=== PATIENT | female | born 1950 | race Caucasian/White ===

== ENCOUNTER 2016-06-18 09:36 | Emergency (ER) | payer OTHER ==
[~2016-06-18] VITALS: Ht 157.5 cm; Wt 90.7 kg
[~2016-06-18 09:36] MED LIST: CALCIUM 600600 M1 PO; DIOVAN HCT 3201 EACH PO; LEVOTHYROXINE75 MCG PO
--- NOTE | 2016-06-18 10:14 | ED SYNCOPE COMPLAINT ---
History of Present Illness General Chief Complaint: General Adult Stated Complaint: WEAKNESS,FELT LIKE SHE WAS GOING TO PASS OUT Source: patient, old records Exam Limitations: no limitations Vital Signs & Intake/Output Vital Signs & Intake/Output ED Intake and Output 06/19 0000 06/18 1200 Intake Total 0 Output Total Balance 0 Intake, Oral 0 Patient 200 lb Weight Allergies Coded Allergies: NO KNOWN ALLERGIES (06/18/16) Reconcile Medications Levothyroxine Sodium 75 MCG TABLET 1 TAB PO DAILY AC THYROID (Reported) Rosuvastatin Calcium (Crestor) 20 MG TABLET 1 TAB PO QPM CHOLESTEROL ( Reported) Valsartan/Hydrochlorothiazide (Diovan Hct 320-25 MG Tablet) 320 MG-25 MG TABLET 1 TAB PO DAILY HEART (Reported) Triage Note: 66 Y/O FEMALE C/O FEELING "LIKE I WAS GOING TO PASS OUT"; SYMPTOMS ONSET THIS AM, 0700, WHILE IN SHOWER. STATES "I FELT WEAK AND TIRED AND I COULD HEAR MY B/P IN MY EARS" .. "IF I DIDNT SIT, I FELT LIKE I WAS GOING TO PASS OUT ..". AT PRESENT, PT C/O FEELING "WEAK AND TIRED AND JITTERY". DENIES C/P. DENIES SOB. FELT "HOT SWEATS" DURING EPISODE BUT DENIES FEELING SWEATY AT THIS TIME. EKG COMPLETE AND SIGNED BY MD TAKEN TO ROOM FOR EVAL Triage Nurses Notes Reviewed? yes Timing: single episode today Precipitating Factors: lightheadedness Associated Symptoms: denies HPI: 66 Year old female history of ocular headaches hypertension high cholesterol presents emergency room after she suddenly became weak in her legs, felt warm and felt as though she was going to pass out while the shower around 7:00 this morning. Patient states that she felt overly tired when she woke up this morning however denied any chest pain shortness of breath palpitations dizziness. There's been no recent fall or head trauma she denies headache vision changes nausea vomiting or arm pain or jaw pain. The patient states that she had a history of vasovagal syncope several years ago. She states she did eat a small breakfast prior to the episode occurring this morning. On arrival the patient denies any symptoms states she is feeling improved. (AMBERLY AGRAWAL,FELIX) Past History Travel History Traveled to [place] past 21 day No Medical History Any Pertinent Medical History? see below for history Neurological: ocular headache EENT: NONE Cardiovascular: hypertension, HIGH CHOLESTEROL Respiratory: NONE Gastrointestinal: NONE Hepatic: NONE Renal: NONE Musculoskeletal: NONE Psychiatric: NONE Endocrine: hypothyroidism Blood Disorders: NONE Cancer(s): NONE METAL DRESSER/Reproductive: NONE Surgical History Surgical History: gastric lap band Psychosocial History What is your primary language Martiniquais Tobacco Use: Never used Family History Hx Contributory? No (FELIX CHAIDEZ) Review of Systems Review of Systems Constitutional: Reports: see HPI. All Other Systems: Reviewed and Negative Comments Review of systems: See HPI, All other systems negative. Constitutional, no chills no fever, no malaise HEENT: No visual changes no sore throat no congestion, Cardiovascular: No chest pain , no palpitation , no orthopnea no ankle swelling Skin, no rashes, no change in skin Respiratory: No dyspnea no cough no sputum no hemoptysis GI: No nausea no vomiting, no diarrhea, : No dysuria No hematuria, no frequency, Muscle skeletal: No joint pain, no joint swelling, no back pain, no neck pain, Neurologic: No numbness no headache Psych: No stress no anxiety no depression,. Heme/endocrine: No bruising no bleeding no polyuria no polydipsia Immunology: No lymphadenopathy, (FELIX CHAIDEZ) Physical Exam Physical Exam General Appearance: well developed/nourished, no apparent distress, alert Cranial Nerves: normal hearing, normal speech, PERRL Comments: Well-developed well-nourished person in no acute distress HEENT: Normal EENT exam; PERRL, EOMI, no nystagmus. HEAD is atraumatic. moist mucous membranes. Neck: Supple, no lymphadenopathy, normal range of motion no bruit Back: Nontender, no CVA tenderness. Full range of motion Cardiovascular: Regular rate and rhythms no murmurs rubs or gallops Respiratory: No respiratory distress. Patient speaking in full complete sentences. Breath sounds clear to auscultation bilaterally: NO W/R/R Abdomen: Soft, nontender nondistended, no appreciable organomegaly. Normal bowel sounds. No rebound/guarding, Extremity: No edema, full range of motion of extremities Neuro: Alert oriented x3, motor sensory normal. There were no obvious focal neurologic abnormalities. Skin: No appreciable rash on exposed skin, skin is warm and dry. Psych: Mood and affect is normal, memory and judgment is normal. Core Measures ACS in differential dx? Yes CVA/TIA Diagnosis: No Severe Sepsis Present: No Septic Shock Present: No (AMBERLY AGRAWAL,FELIX) Progress Differential Diagnosis: AMI, aortic valve, hyperventilation, orthostatic syncope , other valvular disease, uti, vasovagal electrolyte abnormality, hamzah Plan of Care: Orders Procedure Date/time Status Regular Diet 06/18 D Active TROPONIN LEVEL 06/18 1415 Complete EKG 06/18 1415 Active URINALYSIS 06/18 1119 Complete MISTAKE 06/18 1016 Active Telemetry/Bus Operator 06/18 1016 Active TROPONIN LEVEL 06/18 1016 Complete COMPREHENSIVE METABOLIC PANEL 06/18 1016 Complete CBC WITHOUT DIFFERENTIAL 06/18 1016 Complete EKG 06/18 0940 Active Laboratory Tests 06/18/16 1413: Troponin I 0.04 06/18/16 1127: Urinalysis LIGHT H, Urine Color YEL, Urine Clarity CLEAR, Urine pH 6.5, Ur Specific [place] 1.015, Urine Protein NEG, Urine Ketones NEG, Urine Nitrite NEG, Urine Bilirubin NEG, Urine Urobilinogen 0.2, Ur Leukocyte Esterase NEG, Ur Microscopic SEDIMENT EXAMINED, Urine RBC RARE, Urine WBC RARE, Ur Epithelial Cells RARE, Urine Bacteria RARE H, Urine Mucus FEW, Urine Hemoglobin SMALL H, Urine Glucose NEG 06/18/16 1021: Anion Gap 11, Estimated GFR > 60, BUN/Creatinine Ratio 22.5, Glucose 79, Calcium 9.6, Total Bilirubin 0.9, AST 36, ALT 36, Alkaline Phosphatase 70, Troponin I 0.03, Total Protein 7.1, Albumin 3.9, Globulin 3.2, Albumin/Globulin Ratio 1.2, CBC w Diff NO MAN DIFF REQ, RBC 4.64, MCV 89.3, MCH 29.7, RDW 13.1, MPV 8.1, Gran % 85.5 H, Lymphocytes % 7.1 L, Monocytes % 6.6, Eosinophils % 0.6, Basophils % 0.2, Absolute Granulocytes 12.7 H, Absolute Lymphocytes 1.0 L, Absolute Monocytes 1.0 H, Absolute Eosinophils 0.1, Absolute Basophils 0, PUBS MCHC 33.3 Labs ordered IV fluids ordered orthostatics negative case discussed with Dr. sherwood Discussed with patient all of her lab results to date again resting a synthetic in no apparent distress discussed with patient plan of care and need for repeat troponin On repeat evaluation patient again is resting comfortably she is ambulatory here around ER with steady gait denies dizziness lightheadedness or presyncopal symptoms. I discussed with her repeat troponin information was provided for follow-up with cardiology as well as her primary care this week advised return anytime sooner with any concerns the patient feels comfortable with plan and discharge at this time (FELIX CHAIDEZ) Departure Departure Time of Disposition: 1506 Disposition: HOME OR SELF CARE Condition: Stable Clinical Impression Primary Impression: Weakness Referrals: HO MEJIA MD (PCP/Family) Sheila MARISCAL MD Additional Instructions: Follow-up with your primary care physician as well as steam gigger Dr. Mariscal this week. Ensure you are drinking and eating well balanced meals throughout the day. Return to emergency room anytime sooner with any concerns. Departure Forms: Customer Survey General Discharge Information (FELIX CHAIDEZ) PA/DIABETES TERRITORY MANAGER Co-Sign Statement Statement: ED Attending supervision documentation- X I saw and evaluated the patient. I have also reviewed all the pertinent lab results and diagnostic results. I agree with the findings and the plan of care as documented in the PA's/DIABETES TERRITORY MANAGER's documentation. [] I have reviewed the ED Record and agree with the PA's/DIABETES TERRITORY MANAGER's documentation. [] Additions or exceptions (if any) to the PAs/DIABETES TERRITORY MANAGER's note and plan are summarized below: [] (LIBIA COATES,MATILDA)
[2016-06-18 10:35] LABS: ABSOLUTE BASOPHIL COUNT 0 /CUMM (0.0-0.2); ABSOLUTE EOSINOPHIL COUNT 0.1 /CUMM (0.0-0.7); ABSOLUTE GRANULOCYTE CT 12.7 /CUMM (1.4-6.5); BASOPHIL % 0.2 % (0.0-2.0); EOSINOPHIL % 0.6 % (0-5); HEMATOCRIT 41.5 % (37-47); MEAN CORPUSCULAR HGB 29.7 PG (27.0-31.0); MEAN CORPUSCULAR HGB CONC 33.3 G/DL (33.0-37.0); MEAN CORPUSCULAR VOLUME 89.3 FL (81.0-99.0); MEAN PLATELET VOLUME 8.1 FL (7.4-10.4); PLATELET COUNT 195 /CUMM (130-400); RBC DISTRIBUTION WIDTH 13.1 % (11.5-14.5); RED BLOOD CELL CT 4.64 /CUMM (4.20-5.40); WHITE BLOOD CELL COUNT 14.9 /CUMM (4.8-10.8)
[2016-06-18 10:55] LABS: GRANULOCYTE % 85.5 % (42.2-75.2)
[2016-06-18] MEDS ORDERED: CRESTOR20 M2 PO (10:55)
[2016-06-18 14:31] VITALS: BP 112/65
== END 2016-06-18 15:21 ==
LOC: ERH 09:36
PROVIDERS: Physician Assistant Medical
DX: R53.1 Weakness (principal); I10 Essential (primary) hypertension; E03.9 Hypothyroidism, unspecified
CPT/HCPCS: 81001; 93005; 93010; 96360

== ENCOUNTER 2016-07-20 17:26 | Observation (INO) | payer OTHER ==
[~2016-07-20] VITALS: Ht 157.5 cm; Wt 90.7 kg
[~2016-07-20 17:26] MED LIST changes: +CRESTOR20 M2 PO
--- NOTE | 2016-07-20 17:45 | ED GENERAL ADULT ---
History of Present Illness General Chief Complaint: General Adult Stated Complaint: PER PT LEGS ARE WEAK, TINGLING IN MOUTH Source: patient, old records Exam Limitations: no limitations Vital Signs & Intake/Output Vital Signs & Intake/Output Vital Signs Date Time Temp Pulse Resp B/P Pulse O2 O2 Flow FiO2 Ox Delivery Rate 07/20 2208 98.5 59 16 164/91 95 Room Air 07/20 1851 Room Air 07/20 1841 99.1 58 16 174/80 95 Room Air 07/20 1730 99.1 69 16 151/95 98 Room Air Allergies Coded Allergies: NO KNOWN ALLERGIES (06/18/16) Reconcile Medications Levothyroxine Sodium 75 MCG TABLET 1 TAB PO DAILY AC THYROID (Reported) Rosuvastatin Calcium (Crestor) 20 MG TABLET 1 TAB PO QPM CHOLESTEROL ( Reported) Valsartan 320 MG TABLET 1 TAB PO DAILY BP (Reported) Triage Note: PT STATES SHE FEELS WEAK AND HER LEGS FEEL LIKE ARE GOING TO GIVE OUT ON HER. PT STATES SOMETIMES THIS HAPPENS WITH THE HEAT BUT TODAY SHE CAN'T FIGURE OUT WHY THIS IS HAPPENING TO HER TODAY. Triage Nurses Notes Reviewed? yes HPI: Patient is a 66-year-old female presents complaining of leg weakness and near syncopal episodes. Patient had one episode on Thursday while she was at work during his stressful situation. Patient has had 3-4 episodes today while walking, legs felt severe weakness, right greater than left. Patient reports that while walking she feels extreme weakness in her legs and feeling like she is going to pass out. Patient sits down and symptoms started to resolve. Patient also had one episode where she was on her computer and her right upper extremity overshot a mouse and she felt like she had less control of her right upper extremity. Currently patient is feeling mild generalized weakness. Pain is 0 out of 10. Patient denies headache, blurred vision, numbness, chest pain, recent trauma. (ANDERS AGRAWAL,GIOVANNY) Past History Travel History Traveled to [place] past 21 day No Medical History Any Pertinent Medical History? see below for history Neurological: ocular headache EENT: NONE Cardiovascular: hypertension, HIGH CHOLESTEROL Respiratory: NONE Gastrointestinal: NONE Hepatic: NONE Renal: NONE Musculoskeletal: NONE Psychiatric: NONE Endocrine: hypothyroidism Blood Disorders: NONE Cancer(s): NONE VALUATION MANAGER/Reproductive: NONE Surgical History Surgical History: gastric lap band Psychosocial History What is your primary language Maori Tobacco Use: Never used ETOH Use: denies use Illicit Drug Use: denies illicit drug use Family History Hx Contributory? No (GIOVANNY MENDEZ) Review of Systems Review of Systems Constitutional: Reports: weakness. Denies: chills, fever. EENTM: Denies: blurred vision, visual changes, ear pain. Respiratory: Denies: cough, short of breath. Cardiovascular: Reports: peripheral edema. Denies: chest pain, palpitations. GI: Denies: abdominal pain, nausea, vomiting. Genitourinary: Reports: no symptoms. Musculoskeletal: Denies: back pain, neck pain. Skin: Denies: rash. Neurological/Psychological: Reports: see HPI. Hematologic/Endocrine: Reports: no symptoms. Immunologic/Allergic: Reports: no symptoms. (GIOVANNY MENDEZ) Physical Exam Physical Exam General Appearance: well developed/nourished, alert, awake Head: atraumatic, normal appearance Eyes: Bilateral: normal appearance, PERRL, EOMI. Ears, Nose, Throat: normal pharynx, normal ENT inspection, hearing grossly normal Neck: normal inspection, supple, full range of motion, no appreciable carotid bruit Respiratory: normal breath sounds, chest non-tender, no respiratory distress, lungs clear Cardiovascular: regular rate/rhythm (no appreciable murmur) Gastrointestinal: soft, non-tender Back: normal inspection, normal range of motion Extremities: normal inspection, normal capillary refill, normal range of motion, no edema Neurologic/Psych: no motor/sensory deficits, awake, alert, oriented x 3, normal gait, normal mood/affect, analytical strategist II-XII nml as tested, normal point to point movements of upper extremities Skin: intact, normal color, warm/dry Lymphatic: no anterior cervical krupa Core Measures ACS in differential dx? Yes ASA ordered for poss ACS? No-ACS ruled out CVA/TIA Diagnosis: Yes NIH Stroke Scale: Total 0 Dt/Tm Last Known Well: Yes Date Last Known Well: 07/20/16 Neurological S/S of CVA: Muscle Weakness, Weakness of Limb Symptom start date: 07/20/16 Reason tPA not ordered: Medical Contraindication Comment: symptoms resolved, tPA not indicated Severe Sepsis Present: No Septic Shock Present: No Bedside Swallow Eval Done: Yes Result of Evaluation: Pass (GIOVANNY MENDEZ) Progress Differential Diagnoses I considered the following diagnoses in my evaluation of the patient: Plan of Care: Orders Procedure Date/time Status Heart Healthy Diet 07/21 B Active CBC WITHOUT DIFFERENTIAL 07/21 06 Active BASIC ELECTROLYTES PLUS BUN&CR 07/21 06 Active TROPONIN LEVEL 07/21 0000 Active EKG 07/21 0000 Active PT Evaluate & Treat 07/20 2153 Active Saline Lock 07/20 2153 Active Pathway - chart 07/20 2153 Active House Staff 07/20 2153 Active Code Status 07/20 2153 Active Saline Lock 07/20 2126 Active Misc Message 07/20 2126 Active ED Holding Orders 07/20 2126 Active Code Status 07/20 2126 Complete Patient Data 07/[address] in observation 07/20 2050 Active MISTAKE 07/20 180 Active THYROID STIMULATING HORMONE 07/20 180 Complete TROPONIN LEVEL 07/20 180 Complete COMPREHENSIVE METABOLIC PANEL 07/20 180 Complete CBC WITHOUT DIFFERENTIAL 07/20 180 Complete EKG 07/20 1730 Active VTE Mechanical Prophylaxis 07/20 UNK Active Vital Signs 07/20 UNK Active Intake & Output 07/20 UNK Active Current Medications Sig/Christophe Start time Last Medication Dose Stop Time Status Admin Atorvastatin Calcium 80 MG 1700 07/21 1700 AC (Lipitor) Levothyroxine Sodium 0.075 MG DAILY AC 07/21 0700 AC (Synthroid) Acetaminophen 500 MG Q6P PRN 07/20 2129 AC (Tylenol) Acetaminophen/ 1 TAB Q8P PRN 07/20 2129 AC Hydrocodone Bitart (Vicodin) Oxycodone/ 1 TAB Q6P PRN 07/20 2129 AC Acetaminophen (Percocet) Laboratory Tests 07/20/16 1848: Anion Gap 13, Estimated GFR > 60, BUN/Creatinine Ratio 15.0, Glucose 89, Calcium 9.6, Total Bilirubin 1.0, AST 23, ALT 32, Alkaline Phosphatase 65, Troponin I < 0.01, Total Protein 7.5, Albumin 4.3, Globulin 3.2, Albumin/Globulin Ratio 1.3, TSH 2.860, CBC w Diff NO MAN DIFF REQ, RBC 4.57, MCV 89.8, MCH 29.9, RDW 13.5, MPV 8.2, Gran % 64.1, Lymphocytes % 24.7, Monocytes % 7.5, Eosinophils % 3.2, Basophils % 0.5, Absolute Granulocytes 4.0, Absolute Lymphocytes 1.5, Absolute Monocytes 0.5, Absolute Eosinophils 0.2, Absolute Basophils 0, PUBS MCHC 33.3 1909: Patient re-evaluated. Erythema and warmth developing to the right side of the face, right side of neck and left side of neck that wasnt present on initial presentation. No urticaria, dyspnea or signs of allergice reaction. Patient denies any new skin contacts, foods. 2029: Discussed with and seen by Dr. Wilburn. Benadryl administered for patient's facial redness. Mild improvement of redness. Results of labs and CT scan discussed with patient and her son. 2049: Dr. Wilburn discussed patient with Dr. Christianson for telemetry observation (ANDERS AGRAWAL,GIOVANNY) Diagnostic Imaging: Viewed by Me: CT Scan. Discussed w/RAD: CT Scan. Radiology Impression: PATIENT: RHODA INMAN PRESENT AGE: 66 PATIENT ACCOUNT NO: [id number] : 52 LOCATION: [facility] ORDERING PHYSICIAN: GIOVANNY AGRAWAL SERVICE DATE: 07/20/16 EXAM TYPE: CAT - CT HEAD WO IV CONTRAST EXAMINATION: CT HEAD WITHOUT CONTRAST CLINICAL INFORMATION: Rule out stroke, symptoms involving the right upper extremity transiently. Syncope. COMPARISON: MRI head 08/21/2014, CT head 2014 TECHNIQUE: Contiguous axial imaging was performed from the skull base to vertex without intravenous administration of contrast. DLP: 529.2 mGy-cm FINDINGS: There is no evidence of acute intracranial hemorrhage or large territorial infarction. No abnormal mass effect or midline shift is seen. Ortiz to white matter differentiation is well preserved. No extra-axial fluid collections are identified. The ventricles are normal in size. There is no abnormal attenuation within the brain parenchyma. The osseous structures and soft tissues are normal. The mastoid air cells and visualized portions of the paranasal sinuses are well aerated. Prominence of the tip of the basilar artery is redemonstrated and overall less conspicuous compared to the [address] CT. IMPRESSION: No acute intracranial findings. DICTATED BY: ELBA WASHINGTON MD DATE/ TIME DICTATED:07/20/161832 RECORD CHANGER TESTER:BROOKE DATE/TIME TRANSCRIBED: 07/20/161832 CONFIDENTIAL, DO NOT COPY WITHOUT APPROPRIATE AUTHORIZATION. < Electronically signed in Other Vendor System> SIGNED BY: ELBA WASHINGTON MD 1840 Initial ED EKG: NORMAL SINUS RHYTHM 64 BPM LEFT AXIS DEVIATION, NO ACUTE st/t- WAVE ABNORMALITIES. Prior EKG: unchanged Rhythm Strip: normal sinus rhythm (GIOVANNY MENDEZ) Departure Departure Disposition: STILL A PATIENT Condition: Stable Clinical Impression Primary Impression: Near syncope Secondary Impressions: TIA (transient ischemic attack) Qualifiers: Transient cerebral ischemia type: unspecified Qualified Code: G45.9 - Transient cerebral ischemic attack, unspecified Referrals: HO MEJIA MD (PCP/Family) Departure Forms: Customer Survey General Discharge Information Observation Note [facility] Patient In: Non-ED OBS Care Area Rationale for Observation: My rational for observation is as follows: telemetry monitoring, serial neurologic exams, serial ekg, serial troponins, neurology consultation, cardiology consultation (GIOVANNY MENDEZ) PA/MILLROOM SUPERVISOR Co-Sign Statement Statement: ED Attending supervision documentation- [X] I saw and evaluated the patient. I have also reviewed all the pertinent lab results and diagnostic results. I agree with the findings and the plan of care as documented in the PA's/MILLROOM SUPERVISOR's documentation. PT SIGNED OUT TO ME... DISCUSSED WITH DR. CHRISTIANSON [] I have reviewed the ED Record and agree with the PA's/MILLROOM SUPERVISOR's documentation. [] Additions or exceptions (if any) to the PAs/MILLROOM SUPERVISOR's note and plan are summarized below: [] (MAURILIO COATES,KARY Muñoz) Critical Care Note Critical Care Note Critical Care Time: non-applicable (GIOVANNY MENDEZ)
[2016-07-20] MEDS ORDERED: VALSARTAN320 M1 PO (18:40)
--- NOTE | 2016-07-20 18:40 | CT SCAN REPORT ---
EXAMINATION: CT HEAD WITHOUT CONTRAST CLINICAL INFORMATION: Rule out stroke, symptoms involving the right upper extremity transiently. Syncope. COMPARISON: MRI head 08/21/2014, CT head 08/04/2014 TECHNIQUE: Contiguous axial imaging was performed from the skull base to vertex without intravenous administration of contrast. DLP: 529.2 mGy-cm FINDINGS: There is no evidence of acute intracranial hemorrhage or large territorial infarction. No abnormal mass effect or midline shift is seen. Ortiz to white matter differentiation is well preserved. No extra-axial fluid collections are identified. The ventricles are normal in size. There is no abnormal attenuation within the brain parenchyma. The osseous structures and soft tissues are normal. The mastoid air cells and visualized portions of the paranasal sinuses are well aerated. Prominence of the tip of the basilar artery is redemonstrated and overall less conspicuous compared to the 2015 CT. IMPRESSION: No acute intracranial findings.
[2016-07-20 19:16] LABS: ABSOLUTE BASOPHIL COUNT 0 /CUMM (0.0-0.2); ABSOLUTE EOSINOPHIL COUNT 0.2 /CUMM (0.0-0.7); ABSOLUTE LYMPH COUNT 1.5 /CUMM (1.2-3.4); ABSOLUTE MONOCYTE COUNT 0.5 /CUMM (0.10-0.60); BASOPHIL % 0.5 % (0.0-2.0); EOSINOPHIL % 3.2 % (0-5); GRANULOCYTE % 64.1 % (42.2-75.2); MEAN CORPUSCULAR HGB 29.9 PG (27.0-31.0); MEAN CORPUSCULAR HGB CONC 33.3 G/DL (33.0-37.0); MEAN CORPUSCULAR VOLUME 89.8 FL (81.0-99.0); MEAN PLATELET VOLUME 8.2 FL (7.4-10.4); PLATELET COUNT 217 /CUMM (130-400); RBC DISTRIBUTION WIDTH 13.5 % (11.5-14.5); RED BLOOD CELL CT 4.57 /CUMM (4.20-5.40); WHITE BLOOD CELL COUNT 6.3 /CUMM (4.8-10.8)
--- NOTE | 2016-07-20 22:48 | History & Physical ---
DEBBIE COATES,[facility] 07/20/16 2248: General Information and HPI MD Statement: I have seen and personally examined RHODA INMAN and documented this H&P. The patient is a 66 year old F who presented with a patient stated chief complaint of [weakness in the legs]. Source of Information: patient Exam Limitations: no limitations History of Present Illness: Patient is a 66 year old lady with PMH of HTN, HLD, ocular migraine, who is brought to the ED by her son after feeling weak and almost passing out earlier today. patient reports that since about a month ago she is feeling weak in both legs (Right more than the Left) when walking and her gait has been wobbly. she denies any loss of balance and fall. The weakness does not change during the day and is not present in the arms. denies any changes in the speech, denies numbness, denies facial droop, reports tingling on the upper lip that happened a few times during the day today and made her more fearful and upset, reports lightheadedness, but no vertigo or nausea. Reports ringing in the ears that has happened 4 times today lasting 30 seconds each. Denies any headache. Patient reports she had visual changes consistent with migraine headache last time she came to the ED for the similar reason (weakness in the legs, about a month ago). At that time her symptoms were associated with vasovagal as it worsened with hot showers. This time she denies noticing such a correlation. Patient was supposed to follow up with Dr. Ch after discharge last time but could not make an appointment. Patient has total knee replacement done 15 years ago on the left side and partial knee replacement 13 years ago on the right side, she is scheduled for a total knee sx on the right on the 2016. Patient reports a fall a few months ago after which she has been having pain on the right knee, she had to use a cane when walking for about 3 weeks. Overall she admits that she feels the right leg is giving away when walking. Patient currently denies chest pain, palpitation, SOB, fever, chills, sick contacts, visual changes, headache. While she was in the ED, she had an episode of redness of the face and upper shoulder for which she was given benadryl resulting in improvement of symptoms. Allergies/Medications Allergies: Coded Allergies: NO KNOWN ALLERGIES (06/18/16) Home Med list Levothyroxine Sodium 75 MCG TABLET 1 TAB PO DAILY AC THYROID (Reported) Rosuvastatin Calcium (Crestor) 20 MG TABLET 1 TAB PO QPM CHOLESTEROL ( Reported) Valsartan 320 MG TABLET 1 TAB PO DAILY BP (Reported) Past History Travel History Traveled to [place] past 21 day No Medical History Neurological: ocular headache EENT: NONE Cardiovascular: hypertension, HIGH CHOLESTEROL Respiratory: NONE Gastrointestinal: NONE Hepatic: NONE Renal: NONE Musculoskeletal: NONE Psychiatric: NONE Endocrine: hypothyroidism Blood Disorders: NONE Cancer(s): NONE 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 Denies: chills, diaphoresis, fever, malaise. EENTM: Reports: see HPI. Cardiovascular: Denies: chest pain, palpitations, peripheral edema, syncope. Respiratory: Denies: cough, short of breath, sputum production. GI: Reports: no symptoms. Genitourinary: Reports: no symptoms. Musculoskeletal: Reports: joint pain (knees R>L). Skin: Reports: no symptoms. Neurological/Psychological: Reports: tingling (of the upper lip, intermittent), weakness (on the legs). Denies: headache (reports migraine in the past). Hematologic/Endocrine: Reports: no symptoms. Immunologic/Allergic: Reports: no symptoms. Exam & Diagnostic Data Last 24 Hrs of Vital Signs/I&O Vital Signs Date Time Temp Pulse Resp B/P Pulse O2 O2 Flow FiO2 Ox Delivery Rate 07/21 0024 97.5 73 16 138/63 98 07/20 2209 98.5 59 16 164/91 95 Room Air 07/20 1851 Room Air 07/20 1841 99.1 58 16 174/80 95 Room Air 07/20 1730 99.1 69 16 151/95 98 Room Air Intake & Output 07/21 0800 07/21 0000 07/20 1600 Intake Total Output Total Balance Patient 90.718 kg 90.718 kg Weight Physical Exam General Appearance Alert, Oriented X3, Cooperative, No Acute Distress Skin No Rashes, No Breakdown, No Significant Lesion HEENT Atraumatic, EOMI, Mucous Membr. moist/pink, pupils round and reactive to light Neck Supple, No JVD Cardiovascular Regular Rate, Normal S1, Normal S2, No Murmurs Lungs Clear to Auscultation, Normal Air Movement Abdomen Soft, No Tenderness Neurological Normal Speech, Strength at 5/5 X4 Ext, Normal Tone, Sensation Intact, Cranial Nerves 3-12 NL, Reflexes 2+, unsteady gait, moving backwards when standing with eyes closed (Romberg's test positive) Extremities No Edema, Normal Pulses, No Tenderness/Swelling Vascular Pulses Symmetrical Last 24 Hrs of Labs/Rex: Laboratory Tests 07/21/16 0020: Troponin I < 0.01 07/20/16 1848: Anion Gap 13, Estimated GFR > 60, BUN/Creatinine Ratio 15.0, Glucose 89, Calcium 9.6, Total Bilirubin 1.0, AST 23, ALT 32, Alkaline Phosphatase 65, Troponin I < 0.01, Total Protein 7.5, Albumin 4.3, Globulin 3.2, Albumin/Globulin Ratio 1.3, TSH 2.860, CBC w Diff NO MAN DIFF REQ, RBC 4.57, MCV 89.8, MCH 29.9, RDW 13.5, MPV 8.2, Gran % 64.1, Lymphocytes % 24.7, Monocytes % 7.5, Eosinophils % 3.2, Basophils % 0.5, Absolute Granulocytes 4.0, Absolute Lymphocytes 1.5, Absolute Monocytes 0.5, Absolute Eosinophils 0.2, Absolute Basophils 0, PUBS MCHC 33.3 Diagnostic Data Other Results SERVICE DATE: 07/20/16 EXAM TYPE: CAT - CT HEAD WO IV CONTRAST EXAMINATION: CT HEAD WITHOUT CONTRAST CLINICAL INFORMATION: Rule out stroke, symptoms involving the right upper extremity transiently. Syncope. COMPARISON: MRI head 08/21/2014, CT head 08/04/2014 TECHNIQUE: Contiguous axial imaging was performed from the skull base to vertex without intravenous administration of contrast. DLP: 529.2 mGy-cm FINDINGS: There is no evidence of acute intracranial hemorrhage or large territorial infarction. No abnormal mass effect or midline shift is seen. Ortiz to white matter differentiation is well preserved. No extra-axial fluid collections are identified. The ventricles are normal in size. There is no abnormal attenuation within the brain parenchyma. The osseous structures and soft tissues are normal. The mastoid air cells and visualized portions of the paranasal sinuses are well aerated. Prominence of the tip of the basilar artery is redemonstrated and overall less conspicuous compared to the 2015 CT. IMPRESSION: No acute intracranial findings. DICTATED BY: ELBA WASHINGTON MD DATE/TIME DICTATED:07/20/161832 INFRASTRUCTURE TECHNICIAN:BROOKE DATE/TIME TRANSCRIBED:07/20/161832 Assessment/Plan Assessment: Patient is a 66 year old lady with PMH of HTN, HLD, ocular migraine, who is brought to the ED due to weakness on the legs and a near syncope episode. Examination has not revealed any neurologic findings. She is admitted for observation to rule out CVA, ACS and any arrhythmias. Problem list: Lower extremity weakness (right more than left) Subjective feeling of weakness and gait abnormality with full (5/5) forces in the exam and sensations intact, but with positive Romberg's's test. there is a possibility of a TIA. Head CT negative. Other possibilities: myopathies, knee injury from the fall and knee/gait instability. She has hx of knee arthroses and arthroplasty (total knee of the left side and scheduled for a total knee on the right on September 01, 2016) * Observation on telemetry to rule out CVA * Neurochecks every 2 hours * Neurology consult placed for am * Consider MRI of the brain * carotid doppler ultrasound * aspirin * high intensity statin * outpatient neurology follow up for further work up of the persistent lower extremity weakness * out patient orthopedics follow up * consider ESR, CRP, CPK Near syncope Etiologies include cardiac (arrhythmias, ACS), vasovagal, orthostatic hypotension. Patient reported her previous ED visit (with similar symptoms) were triggered by a hot shower and she was told the etiology of her weakness and lightheadedness was probably vasovagal. No palpitation, or chest pain, but reported lightheadedness this time. EKG unremarkable, Troponin negative * telemetry monitoring * repeat troponin and EKG * cardiology consult in am * echocardiogram * orthostats HTN, HLD, hypothyroidism * continue home medications (valsartan 320 daily, levothyroxine 75 mcg daily) - she is recently taken off of the HCTZ due to low blood pressures * lipitor 80 mg daily (increased dose from home regimen: rosuvastatin 20 mg daily - equivalent 40 mg) Pain tylenol, vicodin, percocet Diet Heart healthy DVT px sC lovenox FUll code As Ranked By This Provider Problem List: 1. Near syncope 2. TIA (transient ischemic attack) Qualifiers Transient cerebral ischemia type: unspecified Qualified Code: G45.9 - Transient cerebral ischemic attack, unspecified 3. Weakness Core Measures/Miscellaneous Acute Coronary Syndrome ACS Diagnosis: No Cerebrovascular Accident CVA/TIA Diagnosis: Yes Date Last Known Well: 07/20/16 Neurological S/S of CVA: Muscle Weakness, Weakness of Limb Symptom Start Date: 07/20/16 Reason tPA not ordered Medical Contraindication Bedside Swallow Eval Done: Yes Result of Evaluation: Pass Congestive Heart Failure CHF Diagnosis: No Venous Thromboembolism VTE Risk Factors: Acute medical illness, Age > 40 No [facility] VTE prophylaxis d/t: VTE low risk, No contraindications No VTE Pharm Prophylaxis d/t: No contraindications VTE Diagnosis: No VTE Type: NONE VTE Confirmed by (Test): NONE Severe Sepsis Severe Sepsis Present: No Septic Shock Septic Shock Present: No Miscellaneous Documentation Attending Case Discussed With: BUTCH CHRISTIANSON MD Primary Care Physician: HO MEJIA MD Patient sees [facility], Dr. Roberson Level of Patient Care: Telemetry STEPHANIE HARO 07/21/16 0226: Resident Review Statement Resident Statement: examined this patient, discussed with audit intern, agreed with audit intern, reviewed EMR data (avail), discussed with nursing, reviewed images, amended to note Other Findings: This is a 66 year old lady with past medical history of HTN, HLD, ocular migraine, presented to ED by her son after feeling weak and almost passing out earlier today. patient reports that since about a month ago she is feeling weak in both legs (Right more than the Left) when walking and her gait has been wobbly. Patient stated that on June she had the symptoms of as a vaso vagal attack when she was taking a shower when she presented to the emergency department she was discharged home at that time she was advised to see florist manager but she stated that she didn't. Today she reports some tingling on her upper lip that happened a few times during the day. Also she report some lightheadedness, ringing sensation in her ears that have been around 3-4 times for less than a minute. Patient stated that she she had total knee replacement done 15 years ago on the left side and she stool for her right knee on August 2016 and because of that she was cane when she walks for the past 3 weeks. Physical examination, imaging and lab as above. Assessment: -Right Leg weakness with near syncopy: The right leg weakness-most likely due to her knee, she complaining cough ringing sensation and feeling sensation of lightheaded, patient will need to be ruled out for TIA. But giving the patient history and comorbidity it is least likely to have a TIA. Plan: -Admit patient to telemetry floor -Vitals every shift, I and O's -Check orthostatics -1 set of troponin and EKG -Echocardiogram -Carotid Doppler -Cardiology consultation -Neurology consultation -Physical therapy consultation -Continue home medication. -Pain pathway -DVT prophylaxis subcutaneous Lovenox -Full code SAMMY COATES, [facility] 07/21/16 0519: Attending MD Review Statement Attending Statement Attending MD Statement: examined this patient, discuss w/resident/PA/INFANTRY OFFICER, agreed w/resident/PA/INFANTRY OFFICER Attending Assessment/Plan: 66 yo morbidly obese F with h/o HTN, hypothyroidism, ocular migraine, depression , osteoarthritis s/p left knee replacement, awaiting right knee replacement (August 2016), is here for evaluation of right leg weakness (rubbery feeling) and near syncopal episodes. Recurrent episodes of feeling lightheaded about to pass out , right leg giving away and this resolves by resting or sitting down. She denies upper extremity weakness, facial droop or speech deficits. No chest pain, dyspnea, nausea, diaphoresis or palpitations. She was seen in ER in June 2016 for pre-syncope (probably vasovagal) and was discharged to follow up with Cardio Dr. Ch but she was unable to make an appointment. VSS. Orthostats are negative. Nonfocal exam except for when she did Romberg's test she swayed backwards. Labs unremarkable. EKG: SR, no acute changes. Head CT neg. 1. Right leg weakness with near syncopal episodes, needs Tele observation to evaluate this further. TIA/ stroke is a possibility. Monitor for arrhythmias, recheck orthostats in AM, monitor neurochecks, rule out ACS, obtain echo, carotid doppler, Cardio and Neuro consult. Continue aspirin and high dose statin. Patient passed bedside swallow eval. PT consult in AM. Continue synthroid and valsartan. Please note, patient had a sudden onset of facial and upper chest redness of unclear etiology that resolved with Benadryl. DVT ppx Lovenox. Full code.
--- NOTE | 2016-07-21 07:24 | PN- Housestaff ---
DALILA COATES,[facility] 07/21/16 0724: Subjective Follow-up For: Presyncope Right knee weakness Tele-Events Since Last Visit: Sinus rhythm, sinus bradycardia 47-57bpm PVC's throughout the night. Subjective: I saw and examined the patient today morning she is doing better, comfortably sitting in the bed. able to walk to the rest room, denies any dizziness or shortness of breath, chest pain. Review of Systems Constitutional: Reports: see HPI. Comments: ROS negative except the above. Objective Last 24 Hrs of Vital Signs/I&O Vital Signs Date Time Temp Pulse Resp B/P Pulse O2 O2 Flow FiO2 Ox Delivery Rate 07/21 0448 97 Room Air 07/21 0410 97.2 53 18 134/74 98 07/21 0316 97.1 76 16 130/74 98 07/21 0024 97.5 73 16 138/63 98 07/20 2209 98.5 59 16 164/91 95 Room Air 07/20 1851 Room Air 07/20 1841 99.1 58 16 174/80 95 Room Air 07/20 1730 99.1 69 16 151/95 98 Room Air Intake & Output 07/21 0800 07/21 0000 07/20 1600 Intake Total 480 Output Total Balance 480 Intake, Oral 480 Patient 90.718 kg 90.718 kg Weight Physical Exam General Appearance: Alert, Oriented X3, Cooperative Skin: No Rashes, No Breakdown HEENT: Atraumatic, PERRLA, EOMI Neck: Supple Cardiovascular: Normal S1, Normal S2 Lungs: Clear to Auscultation, Normal Air Movement Abdomen: Normal Bowel Sounds, Soft, No Tenderness Neurological: Normal Speech, Normal Tone, Sensation Intact Extremities: No Clubbing, No Cyanosis Current Medications: Current Medications Sig/Christophe Start time Last Medication Dose Route Stop Time Status Admin Acetaminophen 500 MG Q6P PRN 07/20 2129 AC PO Acetaminophen/ 1 TAB Q8P PRN 07/20 2129 AC Hydrocodone Bitart PO Aspirin 0 .STK-MED ONE 07/21 2155 DC PO Aspirin 81 MG ONCE ONE 07/20 2100 DC 07/20 PO 07/20 2101 2313 Atorvastatin Calcium 80 MG 1700 07/21 1700 AC PO Diphenhydramine HCl 0 .STK-MED ONE 07/20 1950 DC PO Diphenhydramine HCl 50 MG ONCE ONE 07/20 1944 DC 07/20 PO 07/20 Enoxaparin Sodium 0 .STK-MED ONE 07/20 2318 DC SC Enoxaparin Sodium 40 MG AT BEDTIME 07/20 230 AC 07/20 SC 231 Levothyroxine Sodium 0.075 MG DAILY AC 07/21 0700 AC PO Losartan Potassium 100 MG DAILY 07/21 1000 AC PO Oxycodone/ 1 TAB Q6P PRN 07/20 2129 AC Acetaminophen PO Last 24 Hrs of Lab/Rex Results Last 24 Hrs of Labs/Mics: Laboratory Tests 07/21/16 0820: Anion Gap 11, Estimated GFR > 60, BUN/Creatinine Ratio 15.0, CBC w Diff NO MAN DIFF REQ, RBC 4.46, MCV 88.8, MCH 30.6, RDW 12.9, MPV 8.2, Gran % 50.7, Lymphocytes % 33.6, Monocytes % 9.2, Eosinophils % 6.1 H, Basophils % 0.4, Absolute Granulocytes 2.2, Absolute Lymphocytes 1.5, Absolute Monocytes 0.4, Absolute Eosinophils 0.3, Absolute Basophils 0, PUBS MCHC 34.5 07/21/16 0020: Troponin I < 0.01 07/20/16 1848: Anion Gap 13, Estimated GFR > 60, BUN/Creatinine Ratio 15.0, Glucose 89, Calcium 9.6, Total Bilirubin 1.0, AST 23, ALT 32, Alkaline Phosphatase 65, Troponin I < 0.01, Total Protein 7.5, Albumin 4.3, Globulin 3.2, Albumin/Globulin Ratio 1.3, TSH 2.860, CBC w Diff NO MAN DIFF REQ, RBC 4.57, MCV 89.8, MCH 29.9, RDW 13.5, MPV 8.2, Gran % 64.1, Lymphocytes % 24.7, Monocytes % 7.5, Eosinophils % 3.2, Basophils % 0.5, Absolute Granulocytes 4.0, Absolute Lymphocytes 1.5, Absolute Monocytes 0.5, Absolute Eosinophils 0.2, Absolute Basophils 0, PUBS MCHC 33.3 Lines/Diet/Fluids Lines: peripheral lines Assessment/Plan Assessment: Patient is a 66 year old lady with PMH of HTN, HLD, ocular migraine, who is brought to the ED due to weakness on the legs and a near syncope episode. Examination has not revealed any neurologic findings. She is admitted for observation to rule out CVA, ACS and any arrhythmias. Problem list: Continue to monitor in observation Lower extremity weakness (right more than left) Subjective feeling of weakness and gait abnormality with full (5/5) forces in the exam and sensations intact, but with positive Romberg's's test. there is a possibility of a TIA. Head CT negative. Other possibilities: myopathies, knee injury from the fall and knee/gait instability. She has hx of knee arthroses and arthroplasty (total knee of the left side and scheduled for a total knee on the right on September 01, 2016) * Started on aspirin 81mg and atorvastatin 80mg daily * MRI and carotid doppler are normal. Near syncope Etiologies include cardiac (arrhythmias, ACS), vasovagal, orthostatic hypotension. Patient reported her previous ED visit (with similar symptoms) were triggered by a hot shower and she was told the etiology of her weakness and lightheadedness was probably vasovagal. No palpitation, or chest pain, but reported lightheadedness this time. EKG unremarkable, Troponin negative * Cardiology consulted, orthostatics are negative. * echocardiogram pending - otherwise stable for discharge HTN, HLD, hypothyroidism * continue home medications (valsartan 320 daily, levothyroxine 75 mcg daily) - she is recently taken off of the HCTZ due to low blood pressures * lipitor 80 mg daily (increased dose from home regimen: rosuvastatin 20 mg daily - equivalent 40 mg) Pain tylenol, vicodin, percocet Diet Heart healthy DVT px sC lovenox FUll code Problem List: 1. Weakness 2. Near syncope 3. TIA (transient ischemic attack) Pain Ratin Pain Location: right knee Pain Goal: Pain 4 or less Pain Plan: tylenol prn Tomorrow's Labs & Rationales: none THOMAS PEREZ MD 07/21/16 1228: Attending MD Review Statement Attending Statement Attending MD Statement: examined this patient, discuss w/resident/PA/CFO CONTROLLER, agreed w/resident/PA/CFO CONTROLLER, reviewed EMR data (avail) Attending Assessment/Plan: 66F PMH HTN, HLD admitted for near syncope and episodes of weakness. Patient reports that for the past month she has had 3+ episodes where she feels as if her legs are going to give out, with lightheadedness and near syncopal symptoms. These episodes have followed either strenuous activity or heat (hot shower for one of them). The patient reports an extreme sedentary lifestyle and inactivity for the past year, mostly because her knees hurt, as she has had bilateral knee replacements and requires revision of both of them (right knee is scheduled for 09/01/16). She reports that she drive 2.5 hours to and from work, sits all day at work, and then sits on the couch when she gets home. Whenever she has any minor physical activity, she reports these symptoms. She denies chest pain, palpitations, shortness of breath. No cardiac history. Mother from complications of cardiomyopathy. Sister at age 52 from sudden cardiac but more likely related to asthma. She does not smoke. No telemetry events, EKG shows NSR, troponin negative. Suspect vasovagal symptoms due to prolonged sedentary lifestyle. 1. Near syncope 2. Lightheadedness 3. Sedentary lifestyle 4. Family history of cardiac disease 5. Essential hypertension Plan - Observation in telemetry - Obtain echocardiogram - Cardiology consult - Check orthostatics - Check TSH - PT evaluation - Pending workup, will likely be discharged later this afternoon or tomorrow morning - Place anticipated discharge order and send CMR for review - Outpatient cardiology and physical therapy referral on discharge - Outpatient cardiology and physical therapy referral on discharge - Place anticipated discharge order and send CMR for review - Outpatient cardiology and physical therapy referral on discharge
[2016-07-21 08:00] VITALS: BP 112/70
[2016-07-21 09:03] LABS: ABSOLUTE BASOPHIL COUNT 0 /CUMM (0.0-0.2); ABSOLUTE EOSINOPHIL COUNT 0.3 /CUMM (0.0-0.7); ABSOLUTE GRANULOCYTE CT 2.2 /CUMM (1.4-6.5); ABSOLUTE LYMPH COUNT 1.5 /CUMM (1.2-3.4); ABSOLUTE MONOCYTE COUNT 0.4 /CUMM (0.10-0.60); BASOPHIL % 0.4 % (0.0-2.0); EOSINOPHIL % 6.1 % (0-5); GRANULOCYTE % 50.7 % (42.2-75.2); HEMATOCRIT 39.6 % (37-47); MEAN CORPUSCULAR HGB 30.6 PG (27.0-31.0); MEAN CORPUSCULAR HGB CONC 34.5 G/DL (33.0-37.0); MEAN CORPUSCULAR VOLUME 88.8 FL (81.0-99.0); MEAN PLATELET VOLUME 8.2 FL (7.4-10.4); PLATELET COUNT 198 /CUMM (130-400); RBC DISTRIBUTION WIDTH 12.9 % (11.5-14.5); RED BLOOD CELL CT 4.46 /CUMM (4.20-5.40); WHITE BLOOD CELL COUNT 4.4 /CUMM (4.8-10.8)
--- NOTE | 2016-07-21 10:28 | Cons- Cardiology ---
EDISON COATES,SONY 07/21/16 1027: General Information and HPI Consulting Request Date of Consult: 07/21/16 Requested By: THOMAS PEREZ MD Reason for Consult: POSSIBLE TIA Source of Information: patient, old records Exam Limitations: no limitations History of Present Illness: Ms. Inman is a 66-year-old lady with a medical history significant for hypertension, hypothyroidism, hyperlipidemia presented to the emergency room yesterday with a chief complaint of dizziness, unstable gait. She was seen in the emergency room last month for similar symptoms, she was told that she had orthostatic hypotension, IV fluids were given and she was discharged. At the time she was advised to follow-up with a medical staffing coordinator however was unable to do so. States that yesterday her symptoms reappeared and she noticed some dizziness, her gait at baseline is atypical, secondary to the fact that she is set to have a right knee replacement in August of this year. However yesterday she noted a right gait preference, and some weakness in the right lower extremity when compared to the left. She had concerns for stroke and subsequently came to the emergency room for evaluation. Her CT head was negative. 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 She denies any personal history of heart attack, known diagnosed coronary artery disease or stroke. Per patient she was taken a diuretic until last month and after her initial ER visit her PCP Jhonatan Miller MD discontinued it. Allergies/Medications Allergies: Coded Allergies: NO KNOWN ALLERGIES (06/18/16) Home Med List: Levothyroxine Sodium 75 MCG TABLET 1 TAB PO DAILY AC THYROID (Reported) Rosuvastatin Calcium (Crestor) 20 MG TABLET 1 TAB PO QPM CHOLESTEROL ( Reported) Valsartan 320 MG TABLET 1 TAB PO DAILY BP (Reported) Review of Systems Review of Systems Constitutional: Reports: see HPI. 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 Home Who Do You Live With? child Services at Home: None Primary Language: Italian Smoking Status: Never Smoked ETOH Use: denies use Illicit Drug Use: denies illicit drug use Exam & Diagnostic Data Vital Signs and I&O Vital Signs Date Time Temp Pulse Resp B/P Pulse O2 O2 Flow FiO2 Ox Delivery Rate 07/21 1020 70 140/90 07/21 0800 97.9 60 20 112/70 96 Room Air 07/21 0448 97 Room Air 07/21 0410 97.2 53 18 134/74 98 07/21 0316 97.1 76 16 130/74 98 07/21 0024 97.5 73 16 138/63 98 07/20 2209 98.5 59 16 164/91 95 Room Air 07/20 1851 Room Air 07/20 1841 99.1 58 16 174/80 95 Room Air 07/20 1730 99.1 69 16 151/95 98 Room Air Intake & Output 07/21 1600 07/21 0800 07/21 0000 07/20 1600 07/20 0800 07/20 0000 Intake Total 480 Output Total Balance 480 Intake, Oral 480 Patient 200 lb 200 lb Weight Physical Exam General Appearance: well developed/nourished, no apparent distress, alert, awake , comfortable Eyes: Bilateral: normal appearance, PERRL, EOMI. 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 nml as tested Labs/Rex Results: Laboratory Tests 07/21 07/21 0820 0020 Chemistry Sodium (137 - 145 mmol/L) 141 Potassium (3.5 - 5.1 mmol/L) 3.9 Chloride (98 - 107 mmol/L) 105 Carbon Dioxide (22 - 30 mmol/L) 26 Anion Gap (5 - 16) 11 BUN (7 - 17 mg/dL) 12 Creatinine (0.5 - 1.0 mg/dL) 0.8 Estimated GFR (>60 ml/min) > 60 BUN/Creatinine Ratio (7 - 25 %) 15.0 Troponin I (< 0.11 ng/ml) < 0.01 Hematology CBC w Diff NO MAN DIFF REQ WBC (4.8 - 10.8 /CUMM) 4.4 L RBC (4.20 - 5.40 /CUMM) 4.46 Hgb (12.0 - 16.0 G/DL) 13.6 Hct (37 - 47 %) 39.6 MCV (81.0 - 99.0 FL) 88.8 MCH (27.0 - 31.0 PG) 30.6 RDW (11.5 - 14.5 %) 12.9 Plt Count (130 - 400 /CUMM) 198 MPV (7.4 - 10.4 FL) 8.2 Gran % (42.2 - 75.2 %) 50.7 Lymphocytes % (20.5 - 51.1 %) 33.6 Monocytes % (1.7 - 9.3 %) 9.2 Eosinophils % (0 - 5 %) 6.1 H Basophils % (0.0 - 2.0 %) 0.4 Absolute Granulocytes (1.4 - 6.5 /CUMM) 2.2 Absolute Lymphocytes (1.2 - 3.4 /CUMM) 1.5 Absolute Monocytes (0.10 - 0.60 /CUMM) 0.4 Absolute Eosinophils (0.0 - 0.7 /CUMM) 0.3 Absolute Basophils (0.0 - 0.2 /CUMM) 0 PUBS MCHC (33.0 - 37.0 G/DL) 34.5 07/20 1848 Chemistry Sodium (137 - 145 mmol/L) 143 Potassium (3.5 - 5.1 mmol/L) 3.7 Chloride (98 - 107 mmol/L) 104 Carbon Dioxide (22 - 30 mmol/L) 26 Anion Gap (5 - 16) 13 BUN (7 - 17 mg/dL) 12 Creatinine (0.5 - 1.0 mg/dL) 0.8 Estimated GFR (>60 ml/min) > 60 BUN/Creatinine Ratio (7 - 25 %) 15.0 Glucose (65 - 99 mg/dL) 89 Calcium (8.4 - 10.2 mg/dL) 9.6 Total Bilirubin (0.2 - 1.3 mg/dL) 1.0 AST (14 - 36 U/L) 23 ALT (9 - 52 U/L) 32 Alkaline Phosphatase (<127 U/L) 65 Troponin I (< 0.11 ng/ml) < 0.01 Total Protein (6.3 - 8.2 g/dL) 7.5 Albumin (3.5 - 5.0 g/dL) 4.3 Globulin (1.9 - 4.2 gm/dL) 3.2 Albumin/Globulin Ratio (1.1 - 2.2 %) 1.3 TSH (0.270 - 4.200 uIU/mL) 2.860 Hematology CBC w Diff NO MAN DIFF REQ WBC (4.8 - 10.8 /CUMM) 6.3 RBC (4.20 - 5.40 /CUMM) 4.57 Hgb (12.0 - 16.0 G/DL) 13.7 Hct (37 - 47 %) 41.0 MCV (81.0 - 99.0 FL) 89.8 MCH (27.0 - 31.0 PG) 29.9 RDW (11.5 - 14.5 %) 13.5 Plt Count (130 - 400 /CUMM) 217 MPV (7.4 - 10.4 FL) 8.2 Gran % (42.2 - 75.2 %) 64.1 Lymphocytes % (20.5 - 51.1 %) 24.7 Monocytes % (1.7 - 9.3 %) 7.5 Eosinophils % (0 - 5 %) 3.2 Basophils % (0.0 - 2.0 %) 0.5 Absolute Granulocytes (1.4 - 6.5 /CUMM) 4.0 Absolute Lymphocytes (1.2 - 3.4 /CUMM) 1.5 Absolute Monocytes (0.10 - 0.60 /CUMM) 0.5 Absolute Eosinophils (0.0 - 0.7 /CUMM) 0.2 Absolute Basophils (0.0 - 0.2 /CUMM) 0 PUBS MCHC (33.0 - 37.0 G/DL) 33.3 Diagnostic Data EKG Results Rate 59, P1 44, QRS 90, QTC 432 Sinus bradycardia Other Results PATIENT: RHODA INMAN PRESENT AGE: 66 PATIENT ACCOUNT NO: [id number] : 52 LOCATION: [facility] ORDERING PHYSICIAN: GIOVANNY AGRAWAL SERVICE DATE: 07/20/16 EXAM TYPE: CAT - CT HEAD WO IV CONTRAST EXAMINATION: CT HEAD WITHOUT CONTRAST CLINICAL INFORMATION: Rule out stroke, symptoms involving the right upper extremity transiently. Syncope. COMPARISON: MRI head 08/21/2014, CT head 08/04/2014 TECHNIQUE: Contiguous axial imaging was performed from the skull base to vertex without intravenous administration of contrast. DLP: 529.2 mGy-cm FINDINGS: There is no evidence of acute intracranial hemorrhage or large territorial infarction. No abnormal mass effect or midline shift is seen. Ortiz to white matter differentiation is well preserved. No extra-axial fluid collections are identified. The ventricles are normal in size. There is no abnormal attenuation within the brain parenchyma. The osseous structures and soft tissues are normal. The mastoid air cells and visualized portions of the paranasal sinuses are well aerated. Prominence of the tip of the basilar artery is redemonstrated and overall less conspicuous compared to the 2015 CT. IMPRESSION: No acute intracranial findings. DICTATED BY: ELBA WASHINGTON MD DATE/TIME DICTATED:07/20/161832 COMPUTER FORWARDING SYSTEM MARKUP CLERK:BROOKE DATE/TIME TRANSCRIBED:07/20/161832 CONFIDENTIAL, DO NOT COPY WITHOUT APPROPRIATE AUTHORIZATION. <Electronically signed in Other Vendor System> SIGNED BY: ELBA WASHINGTON MD 07/20/16 1840 Assessment/Plan Assessment/Plan Assessment- 1. Presyncope, ? TIA 2. HTN 3. HLD 4. Hypothyroidism Plan- - Continue telemetry monitoring - Check D-dimer, patient is concerned regarding DVT - Check thyroid studies, vitamin D, B12, folic acid - Neurology consult - Consider MRI of the head - Check carotid Dopplers, echocardiogram - Orthostatic vital signs every shift - Continue ARB, statin, Synthroid - Aspirin 81 mg daily Consult Acknowledgment - Thank you for your consult request. DAVEY COATES,PAUL Miner 07/21/16 1233: Assessment/Plan Assessment/Plan Attending addendum: The patient was seen and evaluated by me and all available data including ECGs and telemetry tracings were reviewed. The case was discussed in detail with the patient and the housestaff as well. The patient's history extends back several years and her prior symptoms are suggestive of orthostasis related syncope. Yesterday's progression of symptoms may be vagal, HR, etc. related. Recommendations: - I agree with the plan as outlined above. - Await echo and carotid and MRI - Please check orthostatic HR and BP - Check thyroid profile, B12, etc. - Further plans after the above. Consult Acknowledgment - Thank you for your consult request.
--- NOTE | 2016-07-21 13:52 | ULTRASOUND REPORT ---
EXAMINATION: DUPLEX BILATERAL CAROTID ULTRASOUND CLINICAL INFORMATION: TIA/CVA. COMPARISON: None. TECHNIQUE: Duplex bilateral carotid US was performed using real-time ultrasound and Doppler techniques (integrating B-mode 2D vascular images, Doppler spectral analysis and color flow Doppler imaging). These techniques were utilized to interrogate the extracranial carotid and vertebral arteries bilaterally. The degree of stenosis is based off criteria similar to NASCET. FINDINGS: No plaque is seen at the carotid bifurcations or within the internal carotid arteries. All velocities are within normal limits. ADDITIONAL FINDINGS: The vertebral arteries show antegrade flow. The external carotid arteries show no significant stenosis. IMPRESSION: No evidence of a hemodynamically significant stenosis involving the internal carotid arteries.
--- NOTE | 2016-07-21 15:09 | Patient Discharge Instructions ---
Discharge Instructions General Discharge Information You were seen/treated for: TIA Vasovagal syncope You had these procedures: CT head, MRI Special Instructions: Please follow up with your PCP in a week Please follow up with in a week Please follow up regarding your total knee replacement on right side as scheduled on september 01, 2016. Diet Recommended Diet: Heart Healthy Activity Activity Self Limited: Yes Acute Coronary Syndrome Inclusion Criteria At DC or during hospital stay patient has or had the following: ACS DIAGNOSIS No Discharge Core Measures Meds if any: Prescribed or Continued at Discharge Meds if any: NOT Prescribed or Continued at Discharge Congestive Heart Failure Inclusion Criteria At DC or during hospital stay patient has or had the following: CHF DIAGNOSIS No Discharge Core Measures Meds if any: Prescribed or Continued at Discharge Meds if any: NOT Prescribed or Continued at Discharge Cerebrovascular accident Inclusion Criteria At DC or during hospital stay patient has or had the following: CVA/TIA Diagnosis Yes Discharge Core Measures Meds if any: Prescribed or Continued at Discharge Antithrombotic No Statin (required if LDL =>70) Yes Anticoagulant Yes Meds if any: NOT Prescribed or Continued at Discharge Venous thromboembolism Inclusion Criteria VTE Diagnosis No VTE Type NONE VTE Confirmed by (Test) NONE Discharge Core Measures - Per Current guidelines, there needs to be overlap - treatment for the first 5 days of Warfarin therapy. - If discharged on Warfarin prior to 5 days of - overlap therapy, the patient will need to be - assessed for post discharge needs including - *Post discharge parental anticoagulation - *Warfarin and/or parental anticoagulation education - *Follow up date to check INR post discharge At least 5 days overlap therapy as Inpatient No Meds if any: Prescribed or Continued at Discharge Note: Overlap Therapy is Warfarin and Anticoagulant Meds if any: NOT Prescribed or Continued at Discharge
[2016-07-21] MEDS ORDERED: ATORVASTATIN CA80 M1 PO (15:13)
[2016-07-21 15:30] VITALS: BP 138/80
--- NOTE | 2016-07-21 15:39 | MRI REPORT ---
MR BRAIN WITHOUT CONTRAST CLINICAL INFORMATION: Dizziness and lightheadedness with weakness in the right knee. COMPARISON: Head CT 07/20/2016. TECHNIQUE: MRI of the brain without contrast was obtained using routine sequences. FINDINGS: There is no hydrocephalus, extra-axial surface collection, or herniation. Mild T2 signal changes throughout the supratentorial white matter suggest mild chronic microangiopathy. Stable prominence of the basilar artery tip. The major flow voids at the skull base are preserved. There is no acute infarct on diffusion-weighted imaging. There is no intracranial hemorrhage on the gradient recalled echo acquisition. The midline structures are normal. The cerebellar tonsils are normally positioned. The cerebellum and brainstem are normal. The craniocervical junction is normal. Osseous marrow signal intensity is homogenous. The visualized soft tissues are unremarkable. The paranasal sinuses and the mastoid air cells are well-aerated. IMPRESSION: - No acute intracranial findings. No acute infarcts. - Mild chronic microangiopathy. Stable prominence of the basilar artery tip.
--- NOTE | 2016-07-21 15:47 | Cons- Neurology ---
"General Information and HPI Consulting Request Date of Consult: 07/21/16 Requested By: THOMAS PEREZ MD Reason for Consult: leg weakness Source of Information: patient, old records Exam Limitations: no limitations History of Present Illness: 66-year-old woman hospitalized about a month ago due to presyncope and improved on lowering medications. She remained well and asymptomatic until last Thursday when she off legs and light headed. One occasion she walked out to her car with a friend, on arriving she became quite tremulous like shivering. Symptoms disappear when lying down but recur rapidly and she first arises particularly in the morning. No actual leg weakness, numbness or paresthesias. No back or neck pain of significance. No bladder dysfunction. Allergies/Medications Allergies: Coded Allergies: NO KNOWN ALLERGIES (06/18/16) Home Med List: Atorvastatin Calcium 80 MG TABLET 80 MG PO 1700 vascular disease Levothyroxine Sodium 75 MCG TABLET 1 TAB PO DAILY AC THYROID (Reported) Rosuvastatin Calcium (Crestor) 20 MG TABLET 1 TAB PO QPM CHOLESTEROL ( Reported) Valsartan 320 MG TABLET 1 TAB PO DAILY BP (Reported) Current Medications: Current Medications Sig/Christophe Start time Last Medication Dose Route Stop Time Status Admin Acetaminophen 500 MG Q6P PRN 07/20 2130 AC PO Acetaminophen/ 1 TAB Q8P PRN 07/20 2130 AC Hydrocodone Bitart PO Aspirin 0 .STK-MED ONE 07/20 2156 DC PO Aspirin 81 MG ONCE ONE 07/20 2100 DC 07/20 PO 07/20 2101 2313 Atorvastatin Calcium 80 MG 1700 07/21 1700 AC PO Diphenhydramine HCl 0 .STK-MED ONE 07/20 1950 DC PO Diphenhydramine HCl 50 MG ONCE ONE 07/20 1945 DC 07/20 PO 07/20 194 194 Enoxaparin Sodium 0 .STK-MED ONE 07/20 2319 DC SC Enoxaparin Sodium 40 MG AT BEDTIME 07/20 2300 AC 07/20 SC 2316 Levothyroxine Sodium 0.075 MG DAILY AC 07/21 0700 AC 07/21 PO 1019 Losartan Potassium 100 MG DAILY 07/21 1000 AC 07/21 PO 1020 Oxycodone/ 1 TAB Q6P PRN 07/20 2130 AC Acetaminophen PO Potassium Chloride 40 MEQ ONCE ONE 04/10 0830 DC 07/21 PO 07/21 0831 1020 Review of Systems Review of Systems: ROS: The patient had no constitutional complaints. Vision clear, no diplopia ENT: No vertigo or tinnitus or hearing loss Cardiac: |Chest pain and palpitations denied Respiratory: No dyspnea or wheezing GI: No abdominal pain nausea or diarrhea. : No dysuria or incontinence Musculoskeletal: No arthralgias, muscle cramps Heme: No unusual bruising or bleeding Psych: Denied depression or anxiety Neuro: See HPI Past History Travel History Traveled to [place] past 21 day No Medical History Blood Transfusion Hx: No Neurological: ocular headache EENT: NONE Cardiovascular: hypertension, hyperlipidemia Respiratory: NONE Gastrointestinal: NONE Hepatic: NONE Renal: NONE Musculoskeletal: NONE Psychiatric: NONE Endocrine: hypothyroidism Blood Disorders: NONE Cancer(s): NONE AGING ROOM HAND/Reproductive: NONE Surgical History Surgical History: knee replacement, gastric lap band Psychosocial History Where Do You Live? Home Who Do You Live With? child Services at Home: None Primary Language: Serbian Smoking Status: Never Smoked ETOH Use: denies use Illicit Drug Use: denies illicit drug use Exam & Diagnostic Data Vital Signs and I&O Vital Signs Date Time Temp Pulse Resp B/P Pulse O2 O2 Flow FiO2 Ox Delivery Rate 07/21 1020 70 140/90 07/21 0800 97.9 60 20 112/70 96 Room Air 07/21 0448 97 Room Air 07/21 0410 97.2 53 18 134/74 98 07/21 0316 97.1 76 16 130/74 98 07/21 0024 97.5 73 16 138/63 98 07/20 2209 98.5 59 16 164/91 95 Room Air 07/20 1851 Room Air 07/20 1841 99.1 58 16 174/80 95 Room Air 07/20 1730 99.1 69 16 151/95 98 Room Air Intake & Output 07/21 1600 07/21 0800 07/21 0000 Intake Total 480 480 Output Total Balance 480 480 Intake, Oral 480 480 Patient 200 lb 200 lb Weight Physical Exam: On exam the patient appeared generally well and in no distress. No peripheral edema Mental status: Alert, attentive, fully oriented, no language errors, recall and general fund of knowledge seem intact Funduscopic unremarkable Visual moore full , Eye movements full without nystagmus, pupils midsize equal round and reactive to light. Facial movement normal bilaterally Facial sensation normal bilaterally Hearing intact bilaterally Uvula elevates midline Tongue protrusion is midline Shoulder shrug symmetric Motor power and tone normal in all 4 extremities Sensation intact to primary modes Tendon reflexes normal and symmetric without pathologic signs Coordination no ataxia Gait gait appears normal. Able to walk on heels and toes if supported for balance. Romberg normal Last 48 Hours of Lab Results: Laboratory Tests 07/21 07/21 0820 0020 Chemistry Sodium (137 - 145 mmol/L) 141 Potassium (3.5 - 5.1 mmol/L) 3.9 Chloride (98 - 107 mmol/L) 105 Carbon Dioxide (22 - 30 mmol/L) 26 Anion Gap (5 - 16) 11 BUN (7 - 17 mg/dL) 12 Creatinine (0.5 - 1.0 mg/dL) 0.8 Estimated GFR (>60 ml/min) > 60 BUN/Creatinine Ratio (7 - 25 %) 15.0 Troponin I (< 0.11 ng/ml) < 0.01 Triglycerides (<150 mg/dL) 88 Cholesterol (<200 MG/DL) 171 LDL Cholesterol, Calc (65 - 129 mg/dL) 95 HDL Cholesterol (40 - 60 mg/dL) 59 Cholesterol/HDL Ratio (0.00 - 4.23 %) 3 Vitamin B12 (239 - 931 pg/mL) 613 Free T4 (0.78 - 2.44 ng/dL) 1.44 Hematology CBC w Diff NO MAN DIFF REQ WBC (4.8 - 10.8 /CUMM) 4.4 L RBC (4.20 - 5.40 /CUMM) 4.46 Hgb (12.0 - 16.0 G/DL) 13.6 Hct (37 - 47 %) 39.6 MCV (81.0 - 99.0 FL) 88.8 MCH (27.0 - 31.0 PG) 30.6 RDW (11.5 - 14.5 %) 12.9 Plt Count (130 - 400 /CUMM) 198 MPV (7.4 - 10.4 FL) 8.2 Gran % (42.2 - 75.2 %) 50.7 Lymphocytes % (20.5 - 51.1 %) 33.6 Monocytes % (1.7 - 9.3 %) 9.2 Eosinophils % (0 - 5 %) 6.1 H Basophils % (0.0 - 2.0 %) 0.4 Absolute Granulocytes (1.4 - 6.5 /CUMM) 2.2 Absolute Lymphocytes (1.2 - 3.4 /CUMM) 1.5 Absolute Monocytes (0.10 - 0.60 /CUMM) 0.4 Absolute Eosinophils (0.0 - 0.7 /CUMM) 0.3 Absolute Basophils (0.0 - 0.2 /CUMM) 0 PUBS MCHC (33.0 - 37.0 G/DL) 34.5 07/20 1848 Chemistry Sodium (137 - 145 mmol/L) 143 Potassium (3.5 - 5.1 mmol/L) 3.7 Chloride (98 - 107 mmol/L) 104 Carbon Dioxide (22 - 30 mmol/L) 26 Anion Gap (5 - 16) 13 BUN (7 - 17 mg/dL) 12 Creatinine (0.5 - 1.0 mg/dL) 0.8 Estimated GFR (>60 ml/min) > 60 BUN/Creatinine Ratio (7 - 25 %) 15.0 Glucose (65 - 99 mg/dL) 89 Calcium (8.4 - 10.2 mg/dL) 9.6 Total Bilirubin (0.2 - 1.3 mg/dL) 1.0 AST (14 - 36 U/L) 23 ALT (9 - 52 U/L) 32 Alkaline Phosphatase (<127 U/L) 65 Troponin I (< 0.11 ng/ml) < 0.01 Total Protein (6.3 - 8.2 g/dL) 7.5 Albumin (3.5 - 5.0 g/dL) 4.3 Globulin (1.9 - 4.2 gm/dL) 3.2 Albumin/Globulin Ratio (1.1 - 2.2 %) 1.3 TSH (0.270 - 4.200 uIU/mL) 2.860 Hematology CBC w Diff NO MAN DIFF REQ WBC (4.8 - 10.8 /CUMM) 6.3 RBC (4.20 - 5.40 /CUMM) 4.57 Hgb (12.0 - 16.0 G/DL) 13.7 Hct (37 - 47 %) 41.0 MCV (81.0 - 99.0 FL) 89.8 MCH (27.0 - 31.0 PG) 29.9 RDW (11.5 - 14.5 %) 13.5 Plt Count (130 - 400 /CUMM) 217 MPV (7.4 - 10.4 FL) 8.2 Gran % (42.2 - 75.2 %) 64.1 Lymphocytes % (20.5 - 51.1 %) 24.7 Monocytes % (1.7 - 9.3 %) 7.5 Eosinophils % (0 - 5 %) 3.2 Basophils % (0.0 - 2.0 %) 0.5 Absolute Granulocytes (1.4 - 6.5 /CUMM) 4.0 Absolute Lymphocytes (1.2 - 3.4 /CUMM) 1.5 Absolute Monocytes (0.10 - 0.60 /CUMM) 0.5 Absolute Eosinophils (0.0 - 0.7 /CUMM) 0.2 Absolute Basophils (0.0 - 0.2 /CUMM) 0 PUBS MCHC (33.0 - 37.0 G/DL) 33.3 Imaging/Other Studies: Brain MRI: IMPRESSION: - No acute intracranial findings. No acute infarcts. - Mild chronic microangiopathy. Stable prominence of the basilar artery tip. Carotid Dopplers: No evidence of a hemodynamically significant stenosis involving the internal carotid arteries. Assessment/Plan Assessment: Wobbly legs associated with lightheadedness and syncope. She will weakness or other neurologic abnormality on the bedside exam and basically normal brain MRI. Suspect relative hypotension or orthostatic hypotension Recommendations: Continue pressure checks If symptoms persist or orthostatic blood pressure drops are noted, discontinue antihypertensives. Patient reports that meds have already been reduced No additional neurodiagnostic testing Follow-up with Dr. Ch Consult Acknowledgment - Thank you for your consult request."
[2016-07-21] MEDS ORDERED: ASPIRIN EC81 M1 PO (16:21)
[2016-07-22 00:05] VITALS: BP 122/66
--- NOTE | 2016-07-22 07:14 | PN- Housestaff ---
DALILA COATES,ESTEVAN 07/22/16 0713: Subjective Follow-up For: Orthostatic hypotension Weakness Tele-Events Since Last Visit: sinus bradycardia, sinus rhythm 49-60bpm Subjective: I saw and examined the patient today morning She is doing much better, reports that she took a shower yesterday. However her orthostatics are positive. Review of Systems Constitutional: Reports: see HPI. Comments: ROS negative except the above. Objective Last 24 Hrs of Vital Signs/I&O Vital Signs Date Time Temp Pulse Resp B/P Pulse O2 O2 Flow FiO2 Ox Delivery Rate 07/22 0005 98.8 68 20 122/66 95 Room Air 07/21 1530 99.2 61 18 138/80 94 Room Air 07/21 1020 70 140/90 07/21 08 97.9 60 20 112/70 96 Room Air Intake & Output 07/22 0800 07/22 0000 07/21 1600 Intake Total 240 480 480 Output Total Balance 240 480 480 Intake, Oral 240 480 480 Physical Exam General Appearance: Alert, Oriented X3, Cooperative, No Acute Distress Skin: No Rashes, No Breakdown HEENT: Atraumatic, PERRLA, EOMI Neck: Supple Cardiovascular: Regular Rate, Normal S1, Normal S2, No Murmurs Lungs: Clear to Auscultation, Normal Air Movement Abdomen: Normal Bowel Sounds, Soft, No Tenderness Neurological: Normal Speech, Normal Tone, Sensation Intact Extremities: No Clubbing, No Cyanosis, No Edema Vascular: Normal Pulses, Pulses Symmetrical Current Medications: Current Medications Sig/Christophe Start time Last Medication Dose Route Stop Time Status Admin Acetaminophen 500 MG Q6P PRN 07/200 AC PO Acetaminophen/ 1 TAB Q8P PRN 07/20 2130 AC Hydrocodone Bitart PO Atorvastatin Calcium 80 MG 1700 07/21 1700 AC 07/21 PO 1629 Enoxaparin Sodium 40 MG AT BEDTIME 07/20 2300 AC 07/21 SC 2055 Levothyroxine Sodium 0.075 MG DAILY AC 07/21 0700 AC 07/22 PO 0639 Losartan Potassium 100 MG DAILY 07/21 1000 AC 07/21 PO 1020 Oxycodone/ 1 TAB Q6P PRN 07/20 2130 AC Acetaminophen PO Potassium Chloride 40 MEQ ONCE ONE 07/21 0830 DC 07/21 PO 07/21 0831 1020 Last 24 Hrs of Lab/Rex Results Last 24 Hrs of Labs/Mics: Laboratory Tests 07/21/16 1600: D-Dimer 431 H Assessment/Plan Assessment: Patient is a 66 year old lady with PMH of HTN, HLD, ocular migraine, who is brought to the ED due to weakness on the legs and a near syncope episode. Examination has not revealed any neurologic findings. She is admitted for observation to rule out CVA, ACS and any arrhythmias. Problem list: Continue to monitor in observation Lower extremity weakness (right > left) Subjective feeling of weakness and gait abnormality with full (5/5) forces in the exam and sensations intact, but with positive Romberg's's test. there is a possibility of a TIA. Head CT negative. Other possibilities: myopathies, knee injury from the fall and knee/gait instability. She has hx of knee arthroses and arthroplasty (total knee of the left side and scheduled for a total knee on the right on September 01, 2016) * Started on aspirin 81mg and atorvastatin 80mg daily * MRI and carotid doppler are normal. * ECHO done and stable for discharge. * Needs outpatient physical therapy for strengthening Near syncope Etiologies include cardiac (arrhythmias, ACS), vasovagal, orthostatic hypotension. Patient reported her previous ED visit (with similar symptoms) were triggered by a hot shower and she was told the etiology of her weakness and lightheadedness was probably vasovagal. No palpitation, or chest pain, but reported lightheadedness this time. EKG unremarkable, Troponin negative * Cardiology consulted, orthostatics are negative. * echocardiogram pending - otherwise stable for discharge HTN, HLD, hypothyroidism * continue home medications (valsartan 320 daily, levothyroxine 75 mcg daily) - she is recently taken off of the HCTZ due to low blood pressures * lipitor 80 mg daily (increased dose from home regimen: rosuvastatin 20 mg daily - equivalent 40 mg) Pain tylenol, vicodin, percocet Diet Heart healthy DVT px sC lovenox FUll code Problem List: 1. Weakness 2. Near syncope 3. TIA (transient ischemic attack) Pain Ratin Pain Location: n/a Pain Goal: Pain 4 or less Pain Plan: Tylenol prn Tomorrow's Labs & Rationales: none THOMAS PEREZ MD 07/22/16 1113: Attending MD Review Statement Attending Statement Attending MD Statement: examined this patient, discuss w/resident/PA/MANAGER FRENCH, agreed w/resident/PA/MANAGER FRENCH, reviewed EMR data (avail) Attending Assessment/Plan: 66F PMH HTN, HLD admitted for near syncope and episodes of weakness. Patient reports that for the past month she has had 3+ episodes where she feels as if her legs are going to give out, with lightheadedness and near syncopal symptoms. These episodes have followed either strenuous activity or heat (hot shower for one of them). The patient reports an extreme sedentary lifestyle and inactivity for the past year, mostly because her knees hurt, as she has had bilateral knee replacements and requires revision of both of them (right knee is scheduled for 09/01/16). She reports that she drive 2.5 hours to and from work, sits all day at work, and then sits on the couch when she gets home. Whenever she has any minor physical activity, she reports these symptoms. She denies chest pain, palpitations, shortness of breath. No cardiac history. Mother from complications of cardiomyopathy. Sister at age 52 from sudden cardiac but more likely related to asthma. She does not smoke. No telemetry events, EKG shows NSR, troponin negative. Suspect vasovagal symptoms due to prolonged sedentary lifestyle. 1. Near syncope 2. Lightheadedness 3. Sedentary lifestyle 4. Family history of cardiac disease 5. Essential hypertension Plan - Stable for discharge - Echocardiogram shows normal LVEF with no valvular abnormalities - Outpatient cardiology and physical therapy referral on discharge - Give prescription for graded compression stockings
[2016-07-22 08:00] VITALS: BP 148/90
[2016-07-22 09:36] VITALS: BP 148/90
--- NOTE | 2016-07-22 13:48 | PN- Cardiology ---
Subjective Subjective: The patient is feeling somewhat better today with less symptoms. She has been noted to be at least 20-30 points orthostatic. Workup otherwise unrevealing. Objective Vital Signs and I&Os Vital Signs Date Time Temp Pulse Resp B/P Pulse O2 O2 Flow FiO2 Ox Delivery Rate 07/22 0936 60 148/90 07/22 0800 98.6 60 20 148/90 97 Room Air 07/22 0005 98.8 68 20 122/66 95 Room Air 07/21 1530 99.2 61 18 138/80 94 Room Air Intake & Output 07/22 1600 07/22 0800 07/22 0000 07/21 1600 07/21 0807/21 0000 Intake Total 240 480 480 480 Output Total Balance 240 480 480 480 Intake, Oral 240 480 480 480 Patient 200 lb 200 lb Weight Current Medications: Current Medications Sig/Christophe Start time Last Medication Dose Route Stop Time Status Admin Acetaminophen 500 MG Q6P PRN 07/20 2130 AC PO Acetaminophen/ 1 TAB Q8P PRN 07/20 2130 AC Hydrocodone Bitart PO Atorvastatin Calcium 80 MG 1700 07/21 1700 AC 07/21 PO 1629 Enoxaparin Sodium 40 MG AT BEDTIME 07/20 2300 AC 07/21 SC 2055 Levothyroxine Sodium 0.075 MG DAILY AC 07/21 0700 AC 07/22 PO 0639 Losartan Potassium 100 MG DAILY 07/21 1000 AC 07/22 PO 0936 Oxycodone/ 1 TAB Q6P PRN 07/20 2130 AC Acetaminophen PO Results Last 48 Hrs of Labs/Mics: Laboratory Tests 07/21/16 1600: D-Dimer 431 H 07/21/16 0820: Anion Gap 11, Estimated GFR > 60, BUN/Creatinine Ratio 15.0, Triglycerides 88, Cholesterol 171, LDL Cholesterol, Calc 95, HDL Cholesterol 59, Cholesterol/HDL Ratio 3, Vitamin B12 613, Free T4 1.44, CBC w Diff NO MAN DIFF REQ, RBC 4.46, MCV 88.8, MCH 30.6, RDW 12.9, MPV 8.2, Gran % 50.7, Lymphocytes % 33.6, Monocytes % 9.2, Eosinophils % 6.1 H, Basophils % 0.4, Absolute Granulocytes 2.2, Absolute Lymphocytes 1.5, Absolute Monocytes 0.4, Absolute Eosinophils 0.3, Absolute Basophils 0, PUBS MCHC 34.5 07/21/16 0020: Troponin I < 0.01 07/20/16 1848: Anion Gap 13, Estimated GFR > 60, BUN/Creatinine Ratio 15.0, Glucose 89, Calcium 9.6, Total Bilirubin 1.0, AST 23, ALT 32, Alkaline Phosphatase 65, Troponin I < 0.01, Total Protein 7.5, Albumin 4.3, Globulin 3.2, Albumin/Globulin Ratio 1.3, TSH 2.860, CBC w Diff NO MAN DIFF REQ, RBC 4.57, MCV 89.8, MCH 29.9, RDW 13.5, MPV 8.2, Gran % 64.1, Lymphocytes % 24.7, Monocytes % 7.5, Eosinophils % 3.2, Basophils % 0.5, Absolute Granulocytes 4.0, Absolute Lymphocytes 1.5, Absolute Monocytes 0.5, Absolute Eosinophils 0.2, Absolute Basophils 0, [facility] 33.3 Assessment/Plan Assessment/Plan Assessment- 1. Presyncope with evidence of orthostasis 2. HTN 3. HLD 4. Hypothyroidism Recommendations: -Had a long discussion with the patient about her orthostatic issues. -Please have the patient fitted for support stockings prior to discharge -The patient will avoid sudden position changes, where her support stockings, elevate the head of her bed, and try to be more active as an outpatient in hopes of preventing further symptoms. -The patient does have persistent mild nocturnal sinus bradycardia. We will arrange for her to have an event monitor as an outpatient. -The patient will follow-up with me in the office in 3-4 weeks. Continue telemetry? No
--- NOTE | 2016-07-22 17:07 | ECHOCARDIOGRAM REPORT ---
RHODA INMAN Age: 66 : 1950 Gender: F Exam Date: 07/21/2016 19:25 Exam Location: [place] Ht (in): 62 Wt (lb): 200 BSA: 2.04 BP: 158 / 80 Ordering Physician: ESTEVAN CONNER MD Referring Physician: Beatriz Ch MD Technologist: Aruna Menon [facility] Room Number: [id number] Indications: PRESYNCOPE/SYNCOPE Rhythm: Sinus Technical Quality: Fair FINDINGS Left Ventricle Normal global left ventricular size, wall thickness, systolic function with no obvious regional wall motion abnormalities. Normal left ventricular ejection fraction estimated at 55-60%. Right Ventricle Right ventricle at upper limits of normal. Right Atrium Normal right atrial size. Left Atrium Mild left atrial dilatation. Mitral Valve Mitral valve thickened. Trace mitral regurgitation. Aortic Valve Trileaflet aortic valve. Focal thickening of the aortic valve cusps. No aortic stenosis. Trace to mild aortic regurgitation. Tricuspid Valve Tricuspid valve not well visualized, grossly normal. Trace to mild tricuspid regurgitation. Pulmonic Valve Pulmonic valve not well visualized, grossly normal. Pericardium No pericardial effusion. Great Vessels Mildly dilated proximal ascending aorta (tube). CONCLUSIONS 1. Minimal to mild aortic sclerosis is present with minimal to mild aortic insufficiency and minimal enlargement of the ascending aorta. 2. Mild thickening of the mitral leaflets is present with minimal mitral insufficiency and mild left atrial enlargement. 3. There is no significant pericardial fluid present. 4. The left ventricular chamber size and systolic function appear normal with no resting wall motion abnormalities. 5. The right heart chambers are upper normal in size with minimal to mild tricuspid insufficiency and no evidence of pulmonary hypertension. 6. Mild lipomatous hypertrophy of the interatrial septum is present. Beatriz Ch M.D. (Electronically Signed) Final Date: 22 July 2016 17:07 MEASUREMENTS (Male / Female) Normal Values 2D ECHO LV Diastolic Diameter PLAX 5.1 cm 4.2 - 5.9 / 3.9 - 5.3 cm LV Systolic Diameter PLAX 3.1 cm 2.1 - 4.0 cm LV Fractional Shortening PLAX 39.2 % 25 - 46 % LV Ejection Fraction 2D Teich 69.4 % IVS Diastolic Thickness 1.2 cm LVPW Diastolic Thickness 1.2 cm LV Relative Wall Thickness 0.5 RV Internal Dim ED PLAX 2.9 cm 1.9 - 3.8 cm LVOT Diameter 1.9 cm Aortic Root Diameter 2.7 cm LA Systolic Diameter LX 3.5 cm 3.0 - 4.0 / 2.7 - 3.8 cm LA Volume 38.0 cm 18 - 58 / 22 - 52 cm Ascending Aorta Diameter 3.8 cm DOPPLER AV Peak Velocity 171.0 cm/s AV Peak Gradient 11.7 mmHg AV Mean Velocity 122.0 cm/s AV Mean Gradient 7.0 mmHg AV Velocity Time Integral 36.5 cm LVOT Peak Velocity 147.0 cm/s LVOT Peak Gradient 8.6 mmHg LVOT Mean Velocity 102.0 cm/s LVOT Mean Gradient 5.0 mmHg LVOT Velocity Time Integral 31.8 cm LVOT Stroke Volume 90.2 cm AV Area Cont Eq vti 2.5 cm AV Area Cont Eq pk 2.4 cm MV Peak Velocity 96.3 cm/s MV Peak Gradient 3.7 mmHg MV Mean Velocity 52.7 cm/s MV Mean Gradient 1.0 mmHg Mitral E Point Velocity 80.9 cm/s Mitral A Point Velocity 88.4 cm/s Mitral E to A Ratio 0.9 MV PHT Velocity 84.5 cm/s MV Deceleration Saline 366.0 cm/s MV Pressure Half Time 69.3 ms MV Area PHT 3.2 cm MV Deceleration Time 248.0 ms TR Peak Velocity 143.0 cm/s TR Peak Gradient 8.2 mmHg Right Atrial Pressure 5.0 mmHg Pulmonary Artery Systolic Pressu 13.2 mmHg Right Ventricular Systolic Press 13.2 mmHg PV Peak Velocity 111.0 cm/s PV Peak Gradient 4.9 mmHg PV Mean Velocity 79.4 cm/s PV Mean Gradient 3.0 mmHg PV Velocity Time Integral 26.0 cm LV E' Lateral Velocity 10.5 cm/s Mitral E to LV E' Lateral Ratio 7.7 LV E' Septal Velocity 11.5 cm/s Mitral E to LV E' Septal Ratio 7.0
== END 2016-07-22 13:25 ==
LOC: ENRESERVDT → ENRESERVTM → CANRESERV → ERH 17:26 → ERHI 20:51 → 1NO 20:51 → ENPENDDIS 20:51 → CANBEDREQ 23:36 → 1NO 07-21 04:14
PROVIDERS: Internal Medicine Hematology & Oncology; Physician Assistant; ADMIT Student in an Organized Health Care Education/Training Program
DX: I95.1 Orthostatic hypotension (principal); R53.1 Weakness; R26.81 Unsteadiness on feet; I10 Essential (primary) hypertension; E03.9 Hypothyroidism, unspecified; E78.5 Hyperlipidemia, unspecified
CPT/HCPCS: 70551; 82436; 93005; 93010; 93306; 96372; G0378; J1650; J3490

== ENCOUNTER 2016-09-01 02:28 | Inpatient (IN) | payer OTHER ==
[~2016-09-01] VITALS: Ht 160 cm; Wt 90.7 kg
[~2016-09-01 02:28] MED LIST changes: +ASPIRIN EC81 M1 PO; +ATORVASTATIN CA80 M1 PO; +VALSARTAN320 M1 PO
--- NOTE | 2016-09-01 11:07 | Admission Core Measures ---
Admission Meds I reviewed the following Meds: Current Medications Sig/Christophe Start time Last Medication Dose Stop Time Status Admin Vancomycin HCl 1,000 MG ONCE 09/01 0000 NR Sodium Chloride 250 ML 09/019 (Normal Saline 0.9%) Acute Coronary Syndrome Inclusion Criteria ACS Diagnosis No Inpatient Core Measures LDL Reminder: If No, please order W/I first 24hr of stay Congestive Heart Failure Inclusion Criteria CHF Diagnosis No Cerebrovascular accident Inclusion Criteria CVA/TIA Diagnosis No Inpatient Core Measures Bedside Swallow Eval Reminder: If BSE failed, place ST order Antithrombotic Reminder: Order Antithrombotic Medication by end of day 2 Antithrombotic Reminder: Document Reason Antithrombotic Not ordered by end of day 2 AFIB/Flutter Reminder: If Present, add to problem list AFIB/Flutter Reminder: Order Anticoag Medication for pts with AFIB/Flutter Atherosclerosis Reminder: If Present, add to problem list LDL Reminder: If No, please order W/I first 24hr of stay PT Order Reminder: If No, please order Venous thromboembolism Inpatient Core Measures VTE Risk Factors: Age > 40, Obesity, Surgery [facility] prophylaxis d/t No contraindications No VTE Pharm Prophylaxis d/t No contraindications Inclusion Criteria - Per Current guidelines, there needs to be overlap - treatment for the first 5 days of Warfarin therapy. - Parenteral Anticoagulation (IV or SC) needs to be - given along with Warfarin therapy. VTE Diagnosis No VTE Type NONE VTE Confirmed by (Test) NONE Problem List As ranked by this Provider includes Assessment & Plan 1. S/P total knee arthroplasty HOME MEDS Home Med List Aspirin (Ecotrin*) 81 MG TABLET.DR 1 TAB PO DAILY heart health Atorvastatin Calcium 80 MG TABLET 80 MG PO 1700 vascular disease Levothyroxine Sodium 75 MCG TABLET 1 TAB PO DAILY AC THYROID (Reported) Valsartan 320 MG TABLET 1 TAB PO DAILY BP (Reported)
--- NOTE | 2016-09-01 17:02 | PN- Orthopedic ---
Subjective Subjective: The patient was seen this evening postoperatively. She reports that her pain is under adequate control has no other complaints at the current time. Objective Vital Signs and I&Os Vital signs: Blood pressure 135/75, pulse 70, temperature 97.7, O2 saturation 95 % on room air I's and O's: 1400 ML's in of lactated Ringer's/600 ML's out of urine via French catheter/EBL 50 Physical Exam: Gen.: Alert and obvious distress Skin: Warm and dry Cardiac: S1-S2 regular Pulmonary: Bilateral breath sounds are equal with decreased at bases Extremities: Bilateral lower extremities are warm without calf tenderness or significant edema. Gross motor and sensory were intact. Right knee surgical dressing was clean, dry, and intact. There are On-Q pain pump leads in place awaiting the On-Q ball Assessment/Plan Assessment/Plan Assessment: 66-year-old female status post right total knee autoplasty postoperatively the patient is progressing as expected and her pain is under adequate control. Plan: Out of bed with physical therapy patient is weightbearing as tolerated Continue current pain regiment Gentle hydration and advance diet as tolerated Keep French catheter until the morning with strict I's and O's GI and DVT prophylaxis will begin Coumadin therapy tonight Follow-up morning laboratory studies re-dose Coumadin for an INR between 2 and 3 Resume home medications Incentive spirometry 1 dose of postoperative prophylactic antibiotic Core Measures/Miscellaneous Venous Thromboembolism VTE Risk Factors: Age > 40, Obesity, Surgery VTE Contraindications: No Contraindications VTE Diagnosis: No VTE Type: NONE VTE Confirmed by (Test): NONE Beta Jamar Is Beta Jamar a Home Med? No Antibiotics Is Patient on Antibiotics? Yes If Yes: prophylaxis
[2016-09-01 17:44] VITALS: BP 150/90
[2016-09-01 19:43] VITALS: BP 140/82
[2016-09-01 21:56] VITALS: BP 142/86
--- NOTE | 2016-09-01 22:52 | NUR ---
LATE ENTRY: PATIENT ARRIVED TO FLOOR AT 1730 ALERT AND ORIENTED. PAIN FREE. VSS. ALPS ON. FLUIDS RUNNING AT 75 ML/HR. PT STATED SHE FELT A LITTLE NAUSEOUS FROM THE TRANSPORT BUT WAS FEELING BETTER. AT 1830 PT FEELING VERY NAUSEOUS. ZOFRAN IV GIVEN. AT 2030 PT STILL COMPLAINING OF NAUSEA BUT STATES SHE FEELS BETTER WHEN SHE LIES DOWN. VSS. PT DENIES ANY PAIN.
[2016-09-02 01:46] VITALS: BP 112/78
[2016-09-02 05:42] VITALS: BP 118/78
--- NOTE | 2016-09-02 07:10 | PN- Orthopedic ---
See Addendum Subjective Subjective: The patient was seen this morning postoperatively day 1. She reports her pain is under adequate control and only has complaints of some back pain. She has no other complaints the current time and secured work with physical therapy. Objective Vital Signs and I&Os Vital Signs Date Time Temp Pulse Resp B/P B/P Pulse O2 O2 Flow FiO2 Mean Ox Delivery Rate 09/02 0542 98.1 59 20 118/78 94 Nasal 1.0L Cannula 09/02 0146 97.8 57 20 112/78 94 Nasal 1.0L Cannula 09/02 0000 Nasal 1.0L Cannula 09/01 2156 97.7 55 20 142/86 94 Nasal 1.0L Cannula 09/01 1944 Nasal 1.0L Cannula 09/01 194 97.7 83 22 140/82 95 Nasal 1.0L Cannula 09/01 1744 97.8 74 16 150/90 94 Nasal 1.0L Cannula Intake & Output 09/02 0800 09/02 0000 09/01 1600 09/01 0800 09/01 0000 08/31 1600 Intake Total 475 Output Total 225 150 Balance -225 325 Intake, IV 375 Intake, Oral 100 Output, Urine 225 150 Patient 200 lb Weight Physical Exam: Gen.: Alert and in no obvious distress Skin: Warm and dry Extremities: Bilateral lower extremities warm without calf tenderness or significant edema. Gross motor and sensory are intact. Right knee surgical dressing is clean, dry, and intact. There is On-Q pain pump in place. Assessment/Plan Assessment/Plan Assessment: 66-year-old obese female status post right total knee arthroplasty postoperative day 1. The patient is progressing as expected and her pain is under adequate control. Plan: Out of bed with physical therapy patient is weightbearing as tolerated Hep-Lock IV fluids and discontinue French catheter Follow-up morning laboratory studies in the dose Coumadin for an INR between 2 and 3 Continue current pain regiment GI and DVT prophylaxis Incentive spirometry Strict I's and O's Core Measures/Miscellaneous Venous Thromboembolism VTE Risk Factors: Age > 40, Obesity, Surgery VTE Contraindications: No Contraindications VTE Diagnosis: No VTE Type: NONE VTE Confirmed by (Test): NONE Beta Jamar Is Beta Jamar a Home Med? No Antibiotics Is Patient on Antibiotics? No
[2016-09-02 09:10] LABS: ABSOLUTE BASOPHIL COUNT 0 /CUMM (0.0-0.2); ABSOLUTE EOSINOPHIL COUNT 0 /CUMM (0.0-0.7); ABSOLUTE GRANULOCYTE CT 10.1 /CUMM (1.4-6.5); ABSOLUTE LYMPH COUNT 0.6 /CUMM (1.2-3.4); ABSOLUTE MONOCYTE COUNT 0.6 /CUMM (0.10-0.60); BASOPHIL % 0 % (0.0-2.0); EOSINOPHIL % 0 % (0-5); HEMATOCRIT 36.2 % (37-47); MEAN CORPUSCULAR HGB 30.2 PG (27.0-31.0); MEAN CORPUSCULAR HGB CONC 33.7 G/DL (33.0-37.0); MEAN CORPUSCULAR VOLUME 89.5 FL (81.0-99.0); MEAN PLATELET VOLUME 8.8 FL (7.4-10.4); PLATELET COUNT 178 /CUMM (130-400); RED BLOOD CELL CT 4.05 /CUMM (4.20-5.40); WHITE BLOOD CELL COUNT 11.3 /CUMM (4.8-10.8)
[2016-09-02 10:35] LABS: GRANULOCYTE % 89.8 % (42.2-75.2)
[2016-09-02 14:00] VITALS: BP 114/82
--- NOTE | 2016-09-02 16:39 | NUR ---
WOUND CARE: DISCUSSED SKIN IMNTEGRITY WITH RN - PER NURSING STAFF, NO EVIDENCE OF INFECTION - DRY SMALL SCABBED AREA TO MID BACK - NO TOPICAL TX REQUIRED AT PRESENT - NURSING INSTRUCTED TO NOTIFY WOUND CARE TEAM WITH ANY FURTHER CONCERNS
--- NOTE | 2016-09-02 19:43 | Operative Report ---
Operative/Inv Procedure Report Surgery Date: 09/01/16 Name of Procedure: Revision unicompartmental arthroplasty to total knee arthroplasty right side Pre-Operative Diagnosis: #1 right knee osteoarthritis #2 status post unicompartmental arthroplasty Post-Operative Diagnosis: Same Estimated Blood Loss: less than 50ml Surgeon/Health Information Assistant: ELISEO COATES,Lelia ONOFRE Anesthesia: block Implants: Maurice triathlon total knee system size 3 femur, size 3 tibia, 13 mm polyethylene, 29 patella Drains: None Specimens: Femoral, tibial, patellar bone, unicompartmental arthroplasty femoral component and tibial component Microbiology: Urine Tourniquet: 79 minutes Complications: None Condition: Stable Operative Indication: Patient is a 66-year-old woman with a history of a right unicompartmental arthroplasty a proximally 13 years ago. Over the past few years she developed increasing right knee pain. Her evaluation revealed findings consistent with advancement of osteoarthritis of the lateral compartment and patellofemoral compartment. Due to the ongoing symptoms that have interfere with normal activities of daily living, she wished to proceed with revision of her unicompartmental arthroplasty to a total knee arthroplasty. Risks, benefits and expectations of surgical procedure which included but not limited to persistent knee pain, need for subsequent surgery, infection, DVT, injury to blood vessel or nerve, anesthesia risks were discussed Operative/Procedure Note Note: Patient was brought to the operating room and transferred to the operating table. Once under appropriate anesthesia, right lower extremity was prepped and draped in standard fashion. Preoperative IV and box were given prophylactically. Leg was elevated exsanguinated and tourniquet was inflated to 300 mm of pressure. A standard anterior incision was made. The previous incision for the unicompartmental arthroplasty was very medial. Therefore went straight anterior standard fashion. Incision was taken down sharply to the underlying retinaculum. A medial retinacular approach was used enter the joint. There was severe end-stage degenerative changes of the patellofemoral compartment and lateral compartment. Unicompartmental arthroplasty was visualized. Osteophytes were excised around the femoral component and tibial component order to properly expose these areas. I then used osteotome to circumferentially loosen the femoral component. This was removed with minimal bone loss. I then turned my attention to removal of remnants of the degenerative meniscal tissues laterally as well as the remnants of the ACL. I then turned my attention to preparation of the femur. I used the intramedullary guide and set it at 6 of valgus. Appropriate thickness was removed while protecting the soft tissues. I then measured the femur to a size 3. Cuts were then completed. The anterior cut was right on the anterior aspect of the cortex. I completed all cuts using the chamfer cuts as well. I then turned my attention to the tibia. I used the external tibial alignment guide in order to get a neutral cut from medial to lateral and to reproduce patient's posterior slope. I had to adjust the cutting guide to be below the cemented polyethylene component which was part of the previous unicompartmental arthroplasty. Again soft tissues were protected with appropriate knee retractors. Cuts were made. The tibia was incised was size 3. This was followed by close reduction with a size 3 tibia size 3 femur as well as the trial polyethylene. I was satisfied with the soft tissue balancing. I then turned my attention to the patella. The patella was measured and the appropriate thickness was removed and then restored with a size 29 patella. The 3 lug holes were drilled and the knee was taken through range of motion. I was satisfied with the tracking. No need for patellar release. I marked my rotation of the tibia and then drilled my 2 lug holes for the femur. I removed all trial components. This was followed by tibial punch. I removed all components at that point time and the proceed with copious irrigation. I plug the distal femoral hole with the anterior chamfer bone from the femur to minimize postoperative hemarthrosis and swelling. Once the cement was ready was applied to the dry clean bony surfaces of the tibia. The definitive size 3 tibia was impacted in place and excess cement was removed with curettes. Cement was applied to the dry clean bony surfaces of the femur. The size 3 femur was impacted in place and excess cement was removed with curettes. An 11 mm insert was placed and the knee and then the knee was taken out to full extension. Cement was applied to the dry clean bony surfaces of the patella. The size 29 patella was impacted in place and excess cement was removed with a knife. A periarticular injection of a cocktail which included ropivacaine with epinephrine and Toradol was used for postoperative pain and inflammation management. Once the cement was hardening took the knee through range of motion. Small pieces of excess cement was removed with osteotome. I then tested the size 11 and size 13 mm inserts. I was satisfied the size 13 mm. Provided excellent stability in full extension mid flexion and full flexion to gravity. After copious irrigation the tibial tray and I made sure that there was no remaining soft tissue, bone fragments or cement fragments within the tibial tray, I impacted the definitive size 13 cruciate retaining polyethylene into place. The locking mechanism was confirmed. I was satisfied with the stability in all planes. I then deflated tourniquet at 79 minutes. Hemostasis was obtained. There was no need for a drain. I then closed the retinacular approach and minimal extension the quadriceps with interrupted #1 Vicryl sutures. Every level of closure was followed by copious irrigation. Subcutaneous tissues closed in 2 layers with 2-0 Vicryl skin was closed with a running 3-0 Vicryl suture with the knee in flexion. Appropriate just his were applied and patient was awakened and taken to recovery room in good condition. No intraoperative complication. Blood loss was minimal due to tourniquet Discharge Disposition: PACU
[2016-09-02 23:09] VITALS: BP 126/74
[2016-09-03 07:42] VITALS: BP 140/81
[2016-09-03 08:07] LABS: ABSOLUTE BASOPHIL COUNT 0 /CUMM (0.0-0.2); ABSOLUTE EOSINOPHIL COUNT 0.2 /CUMM (0.0-0.7); ABSOLUTE GRANULOCYTE CT 4.2 /CUMM (1.4-6.5); ABSOLUTE LYMPH COUNT 0.9 /CUMM (1.2-3.4); ABSOLUTE MONOCYTE COUNT 0.5 /CUMM (0.10-0.60); BASOPHIL % 0.4 % (0.0-2.0); EOSINOPHIL % 2.8 % (0-5); GRANULOCYTE % 73.2 % (42.2-75.2); HEMATOCRIT 34.4 % (37-47); MEAN CORPUSCULAR HGB 30.4 PG (27.0-31.0); MEAN CORPUSCULAR HGB CONC 34.3 G/DL (33.0-37.0); MEAN CORPUSCULAR VOLUME 88.5 FL (81.0-99.0); MEAN PLATELET VOLUME 9.1 FL (7.4-10.4); PLATELET COUNT 189 /CUMM (130-400); RBC DISTRIBUTION WIDTH 13.4 % (11.5-14.5); RED BLOOD CELL CT 3.89 /CUMM (4.20-5.40); WHITE BLOOD CELL COUNT 5.7 /CUMM (4.8-10.8)
[2016-09-03 08:14] LABS: PT 22.4 SEC (9.4-12.5)
--- NOTE | 2016-09-03 08:28 | NUR ---
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
--- NOTE | 2016-09-03 08:41 | PN- Orthopedic ---
See Addendum Subjective Subjective: Nausea reported overnight, no acute events. Pain controlled with toradol and po pain medication. Has been oob. Denies chest pain and shortness of breath. Objective Vital Signs and I&Os Vital Signs Date Time Temp Pulse Resp B/P B/P Pulse O2 O2 Flow FiO2 Mean Ox Delivery Rate 09/03 0742 97.8 56 20 140/81 95 Room Air 09/02 2309 98.4 68 18 126/74 92 Room Air 09/02 1400 98.3 73 18 114/82 95 Room Air 09/02 1054 Room Air Room Air 09/02 1049 62 122/66 Intake & Output 09/03 1600 09/03 0800 09/03 0000 09/02 1600 09/02 0800 09/02 0000 Intake Total 120 800 410 720 475 Output Total 900 500 200 225 150 Balance -900 120 300 210 495 325 Intake, IV 10 600 375 Intake, Oral 120 800 400 120 100 Number 0 0 Bowel Movements Output, Urine 900 500 200 225 150 Patient 200 lb Weight Physical Exam: General: Alert and oriented x3, no acute distress Cardiac: RRR, s1s2 Pulm: CTA bilaterally Abdomen: Non-tender, non-distended Extremties: Moves all extremities, distal sensation intact, skin warm and well perfused, dp pulses palbable bialtearlly, bilateral calves soft and non-tender Surgial site: Dressing removed, steri strips in placve, skin edges well approximated, no drainage, no excessive erythema, clean dry dressing reapplied. Assessment/Plan Assessment/Plan This is a 66 year old female, POD 2, s/p revision right tkr (conversion from unilateral to total) -Nausea: Zofran prn, pain medication with food, will continue to monitor -Continue current pain regmiem -OOB, wbat -Continue dvt ppx with coumadin, f/u am labs. -F/U INR, dose coumadin, target INR 2-3 -Plan for dc to home tomorrow -Will d/w Dr. Prince Core Measures/Miscellaneous Venous Thromboembolism VTE Risk Factors: Age > 40, Obesity, Surgery VTE Contraindications: No Contraindications VTE Diagnosis: No VTE Type: NONE VTE Confirmed by (Test): NONE Beta Jamar Is Beta Jamar a Home Med? No Antibiotics Is Patient on Antibiotics? No
--- NOTE | 2016-09-03 08:49 | NUR ---
NURSING NOTE: PT LEFT FLOOR VIA STRETCHER WITH DISTRUBUITIN FOR FOLLOW UP R KNEE XRAY. PT AWAKE, A/OX3, ROOM AIR, DSG TO KNEE C/D/I. DENIES COMPLAINTS, TICKET TO RIDE COMPLETE.
--- NOTE | 2016-09-03 09:43 | NUR ---
NURSING NOTE: PT TEARFUL AT THIS TIME, STATES "EVEN THOUGH I GOT SLEEP LAST NIGHT I HAD A VERY BAD DAY YESTERDAY AND I NEED SOME QUIET TIME TO MYSELF." COFFEE GIVEN PER PT REQUEST. 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
[2016-09-03] MEDS ORDERED: DILAUDID2 M1 PO (10:37)
[2016-09-03] MEDS ORDERED: COLACE100 M1 PO (10:37)
[2016-09-03] MEDS ORDERED: COUMADIN5 M2 PO (10:37)
[2016-09-03] MEDS ORDERED: VALIUM5 M2 PO (10:39)
--- NOTE | 2016-09-03 10:42 | Patient Discharge Instructions ---
Discharge Instructions General Discharge Information You were seen/treated for: Right knee degenerative joint disease You had these procedures: Revision right total knee arthroplasty Watch for these problems: Significantly increased pain or difficulty ambulating Increased redness or drainage from incision Temperatures over 101 No bath, but you may shower: Yes Other wound care: Daily dry dressing change to surgical site Special Instructions: Surgical clips should be removed on postoperative day #15 and the incision should be reinforced with Steri-Strips Daily INR and dose Coumadin for a goal between 2 and 3 See printed information booklet Diet Continue normal diet: Yes Activity Activity Self Limited: Yes Other activity limits: Ambulate using walker as instructed by physical therapy No driving while on pain medications and until okayed by your surgeon Acute Coronary Syndrome Inclusion Criteria At DC or during hospital stay patient has or had the following: ACS DIAGNOSIS No Discharge Core Measures Meds if any: Prescribed or Continued at Discharge Meds if any: NOT Prescribed or Continued at Discharge Congestive Heart Failure Inclusion Criteria At DC or during hospital stay patient has or had the following: CHF DIAGNOSIS No Discharge Core Measures Meds if any: Prescribed or Continued at Discharge Meds if any: NOT Prescribed or Continued at Discharge Cerebrovascular accident Inclusion Criteria At DC or during hospital stay patient has or had the following: CVA/TIA Diagnosis No Discharge Core Measures Meds if any: Prescribed or Continued at Discharge Meds if any: NOT Prescribed or Continued at Discharge Venous thromboembolism Inclusion Criteria VTE Diagnosis No VTE Type NONE VTE Confirmed by (Test) NONE Discharge Core Measures - Per Current guidelines, there needs to be overlap - treatment for the first 5 days of Warfarin therapy. - If discharged on Warfarin prior to 5 days of - overlap therapy, the patient will need to be - assessed for post discharge needs including - *Post discharge parental anticoagulation - *Warfarin and/or parental anticoagulation education - *Follow up date to check INR post discharge At least 5 days overlap therapy as Inpatient No Meds if any: Prescribed or Continued at Discharge Note: Overlap Therapy is Warfarin and Anticoagulant Meds if any: NOT Prescribed or Continued at Discharge
--- NOTE | 2016-09-03 10:45 | Surgical Discharge Summary ---
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 Home Who Do You Live With? Son Services at Home: None What is Your Primary Language? Danish Review of Systems: See admitting H&P Hospital Course Course Attending Physician: ELISEO COATES,[facility] Primary Care Physician: ROBERTO COATES,[facility] Course: The patient was similar on 09/01/2016. Later the patient is brought to the operating theater where she underwent a revision right total knee arthroplasty. Postoperative patient progressed as expected, her pain was adequately controlled and she worked with physical therapy. The patient was started on Coumadin therapy and her laboratory studies/vital signs remained stable. The patient was discharged with an uneventful hospital course. Complications: None Allergies: Coded Allergies: adhesive (RASH 08/22/16) Significant Procedures: Revision right total knee arthroplasty Disposition Summary Disposition Principal Diagnosis: Degenerative joint disease right knee Additional Diagnosis: None Discharge Disposition: home health services Discharge Instructions General Discharge Information Code Status: Full Code Patient's Diet: Resume previous diet Patient's Activity: Weightbearing as tolerated, ambulate with walker as directed by physical therapy No driving or operating heavy machinery until your seen by her physician and off all pain medications Follow-Up Instructions/Appts: Called office to be seen in 2 weeks Medications at Discharge Discharge Medications: Stop taking the following medications: Aspirin (Ecotrin*) 81 MG TABLET.DR ORAL DAILY Qty = 30 Continue taking these medications: Levothyroxine Sodium (Levothyroxine Sodium) 75 MCG TABLET 1 Tablet ORAL DAILY BEFORE BREAKFAST Comments: Last Taken: 07/22/16 Time: 7 AM Valsartan (Valsartan) 320 MG TABLET 1 Tablet ORAL DAILY Qty = 30 Comments: Last Taken: 07/22/16 Time: 9:30 AM Atorvastatin Calcium (Atorvastatin Calcium) 80 MG TABLET 80 Milligram ORAL 5 PM Qty = 30 Comments: Last Taken: 07/21/16 Time: 4:30 PM Start taking the following new medications: Hydromorphone HCl (Dilaudid) 2 MG TABLET 1-2 Tablet ORAL Q4-6P as needed for PAIN Qty = 30 No Refills Warfarin Sodium (Coumadin) 5 MG TABLET 1 Tablet ORAL DAILY Qty = 30 No Refills Instructions: DOSE FOR INR 2-3 Docusate Sodium (Colace) 100 MG CAPSULE 1 Capsule ORAL TWICE DAILY Qty = 20 No Refills Diazepam (Valium) 5 MG TABLET 1 Tablet ORAL EVERY 8 HOURS NEEDED as needed for SPASMS Qty = 20 No Refills
--- NOTE | 2016-09-03 11:25 | NUR ---
PHYSICAL THERAPY- ATTEMPTED TO SEE PT THIS AM; PT TEARFUL AND REPORTS BEING "EMOTIONALLY UNABLE" TO PARTICIPATE IN P.T. AT THIS TIME. WHILE PAIN IS CONTROLLED CURRENTLY AND PT GOT A GOOD NIGHT'S SLEEP, SHE REPORTS "NOT SLEEPING WELL DURING THE DAY YESTERDAY" DUE TO A LOUD ROOMMATE. "I'M NOT GETTING OUT OF THIS BED NOW, COME BACK IN 3 OR 4 HOURS." TOLD PT WILL CHECK ON OPTIMAL PAIN MEDICATION TIMING FOR P.T. RETURN. PT REMAINS CLEARED FOR D/C HOME AT THIS TIME BASED ON MOBILITY STATUS. WILL FOLLOW.
--- NOTE | 2016-09-03 11:27 | RADIOLOGY REPORT ---
EXAMINATION: XR KNEE, RIGHT CLINICAL INFORMATION: Status post right total knee arthroplasty. COMPARISON: None. TECHNIQUE: 2 views of the right knee. FINDINGS: Postoperative changes of total right knee arthroplasty are noted with intact hardware and satisfactory alignment. Specifically, no periprosthetic lucency suggestive of loosening is noted. Incidental note is made of a soft tissue lucencies seen involving the subcutaneous fat plane overlying the anterior aspect of the right distal thigh, may represent recent postsurgical change. Alternatively, may represent posttraumatic or postinfectious process. Please correlate clinically. IMPRESSION: 1. Intact right total knee arthroplasty. 2. Nonspecific subtle lucencies are noted within the subcutaneous fat at the level of the right anterior distal thigh, may represent recent postsurgical changes versus changes secondary to underlying infection, trauma, etc. Please correlate clinically.
--- NOTE | 2016-09-03 13:43 | NUR ---
PHYSICAL THERAPY- ATTEMPTED TO SEE PT AGAIN THIS PM (WHILE PT REMAINS PREMEDICATED ON DILAUDID/TORADOL), PT ADAMANTLY CONT TO REFUSE P.T. AT THIS TIME "I'M STILL NOT GETTING OUT OF THIS BED, I WAS JUST DOZING OFF, COME BACK IN 2 HOURS". EXPLAINED IMPORTANCE OF MOBILITY AFTER TKA, AND P.T. WOULD BE GONE FOR THE DAY AT THAT TIME (PT'S PAIN MEDS ALSO DUE AGAIN IN 2 HOURS). ENCOURAGED PT TO GET UP AND WALK AROUND UNIT LATER THIS AFTERNOON/EVENING TOLERATED. PT VERBALIZED UNDERSTANDING AND AGREES TO MOBILIZE. NOTIFIED NSG AND SURGICAL PA, WILL FOLLOW APPROPRIATE TOMORROW.
[2016-09-03 14:09] VITALS: BP 130/82
[2016-09-03 22:49] VITALS: BP 123/78
--- NOTE | 2016-09-04 07:15 | PN- Orthopedic ---
Subjective Subjective: The patient is seen this morning postoperatively day #3. She reports that her pain is under adequate control and is other complaints at the current time. Objective Vital Signs and I&Os Vital Signs Date Time Temp Pulse Resp B/P B/P Pulse O2 O2 Flow FiO2 Mean Ox Delivery Rate 09/03 2249 98.4 69 18 123/78 93 Room Air 09/03 1409 98.8 64 18 130/82 94 Room Air 09/03 1030 132/78 09/03 0742 97.8 56 20 140/81 95 Room Air Intake & Output 09/04 0800 09/04 0000 09/03 1600 09/03 0800 09/03 0000 09/02 1600 Intake Total 600 850 120 800 410 Output Total 700 1750 500 200 Balance -100 -900 120 300 210 Intake, IV 50 10 Intake, Oral 600 800 120 800 400 Number 0 0 0 Bowel Movements Output, Urine 700 1750 500 200 Physical Exam: Gen.: Alert and in no obvious distress Skin: Warm and dry Extremities: Bilateral external are warm without calf tenderness or significant edema. Gross motor and sensory are intact. Right knee surgical incision is clean, dry, and intact without signs of infection. Assessment/Plan Assessment/Plan Assessment: 66-year-old female status post right total knee arthroplasty postoperative day #3. The patient is progressing as expected and her pain is under adequate control. Plan: Out of bed with physical therapy Continue current pain regiment GI and DVT prophylaxis Incentive spirometry Discharge home later today Core Measures/Miscellaneous Venous Thromboembolism VTE Risk Factors: Age > 40, Obesity, Surgery VTE Contraindications: No Contraindications VTE Diagnosis: No VTE Type: NONE VTE Confirmed by (Test): NONE Beta Jamar Is Beta Jamar a Home Med? No Antibiotics Is Patient on Antibiotics? No
[2016-09-04 07:41] VITALS: BP 126/74
[2016-09-04 08:14] LABS: PT 23.8 SEC (9.4-12.5)
== END 2016-09-04 13:29 | disposition home health service (06) | DRG 468 ==
LOC: SDA 02:28 → ENRESERV 14:23 → 2NB 17:16 → ENPENDDIS 09-04 07:17 → 2NB 09-04 13:29
PROVIDERS: Physician Assistant; Physician Assistant Surgical; ADMIT Orthopaedic Surgery
PROC: 0SPT0JZ Removal of Synthetic Substitute from Right Knee Joint, Femoral Surface, Open Approach (ICD-10-PCS; principal; 2016-09-01)
PROC: 0SPV0JZ Removal of Synthetic Substitute from Right Knee Joint, Tibial Surface, Open Approach (ICD-10-PCS; principal; 2016-09-01)
PROC: 0SRC0J9 Replacement of Right Knee Joint with Synthetic Substitute, Cemented, Open Approach (ICD-10-PCS; principal; 2016-09-01)
PROC: 3E0T3CZ (ICD-10-PCS; 2016-09-01)
DX: M17.11 Unilateral primary osteoarthritis, right knee (principal); I10 Essential (primary) hypertension; E66.9 Obesity, unspecified; Z68.35 Body mass index [BMI] 35.0-35.9, adult; E78.00 Pure hypercholesterolemia, unspecified
CPT/HCPCS: 2NBSP; 36415; 73560-RT; 82436; 87086; 88305; 97110-GO; 97116-GO; 97161-GP; 97530-GO; C1713; J0131; J0171; J1885; J2405; J2795; J3370; J7040; J7042